=== PATIENT | female | born 1990 | race African-American/Black ===

== ENCOUNTER 2018-12-04 21:37 | Emergency (ER) | payer OTHER ==
--- NOTE | 2018-12-04 21:46 | ED ---
Chest Pain HPI - General Chief Complaint: Chest Pain Stated Complaint: Chest and neck pain, WILLIAM Time Seen by Provider: 12/04/18 21:45 Source: patient Mode of arrival: wheelchair Limitations: no limitations - History of Present Illness Initial Comments: Patient is a previously healthy 28-year-old female who presents to the emergency department today for reevaluation of right-sided chest pain and right shoulder pain. Patient reports a couple days ago she began having pain in her right shoulder, she was seen and evaluated outside hospital last night and discharged this morning after a negative workup she was advised that her pain is muscular skeletal in nature. She reports she's taken 2 Motrin 600 mg at the day today but continues to have pain in her right shoulder and right chest. Pain is now associated with shortness of breath so she wanted reevaluation. Patient denies any specific injury or increased work load. She denies any workouts or heavy lifting. She reports that a few days ago her friend was giving her massage did note that her shoulder seems somewhat swollen. The shortness breath is new. Patient has no cardiac history. No family history of early cardiac disease. She has no history of DVT or PE. She isn't every day smoker. She is not on any estrogen. She has no lower surety swelling. - Related Data Home Medications Medication Instructions Recorded Confirmed Ibuprofen [Motrin Ib] 400 mg PO Q6H PRN 12/04/18 12/04/18 Previous Rx's Medication Instructions Recorded Ibuprofen [Motrin] 600 mg PO Q6HR PRN #30 tab 12/04/18 Methocarbamol [Robaxin-750] 750 mg PO TID #30 tablet 12/04/18 Allergies Allergy/AdvReac Type Severity Reaction Status Date / Time No Known Allergies Allergy Verified 12/04/18 22:15 Review of Systems ROS Statement: Those systems with pertinent positive or pertinent negative responses have been documented in the HPI. ROS Other: All systems not noted in ROS Statement are negative. EKG Findings - EKG Comments: EKG Findings:: EKG was obtained at 2152, repeat is 95 rhythm is sinus there is a normal axis, there are normal intervals GA is 146 QRS 82 QTc 439. There are no acute ST elevations or depressions there is no evidence of acute ischemia or infarction. There is no sinus tachycardia or S1 Q3 T3 pattern suggestive of right heart strain or pulmonary embolism. Past Medical History Additional Past Medical History / Comment(s): syncopal episodes History of Any Multi-Drug Resistant Organisms: None Reported Past Surgical History: No Surgical Hx Reported Past Psychological History: Anxiety, Depression Smoking Status: Current every day smoker Past Alcohol Use History: None Reported Past Drug Use History: None Reported General Exam - General Exam Comments Initial Comments: Physical Exam GENERAL: Patient is well-developed and well-nourished. Patient is nontoxic and well- hydrated and is in no distress. HENT: Normocephalic, Atraumatic. EYES: PERRL, EOMI PULMONARY: Unlabored respirations. No audible rales rhonchi or wheezing was noted. CARDIOVASCULAR: There is a regular rate and rhythm without any murmurs gallops or rubs. ABDOMEN: Soft and nontender with normal bowel sounds. SKIN: Skin is clear with no lesions or rashes and otherwise unremarkable. : Deferred NEUROLOGIC: Patient is alert and oriented x3. Moving all extremities spontaneously MUSCULOSKELETAL: Normal extremities with adequate strength and full range of motion. No lower extremity swelling or edema. No calf tenderness. PSYCHIATRIC: Normal psychiatric evaluation. Limitations: no limitations Limitations: no limitations Course Vital Signs 12/04/18 21:42 Temperature 98.4 F Pulse Rate 98 Respiratory 18 Rate Blood Pressure 128/91 O2 Sat by Pulse 99 Oximetry Chest Pain MDM - MDM Patient was seen and evaluated history is obtained from patient Patient with right-sided chest pain shortness of breath and right shoulder pain radiating to her neck Heart score 1 smoking PERC and Wells negative Patient reports negative workup at outside hospital last night I have very high suspicion for musculoskeletal etiology of discomfort Will treat with Toradol and Valium Labs and imaging ordered EKG non-ischemic CXR unremarkable Labs unremarkable Patient was reevaluated reports significant improvement in her discomfort after Toradol and Valium I will plan to discharge patient with Motrin and Robaxin patient is agreeable to this plan. All questions pertaining care were answered best my ability return parameters were discussed and the patient was discharged home in stable condition. Disposition Clinical Impression: Right shoulder pain, Musculoskeletal pain Disposition: HOME SELF-CARE Instructions (If sedation given, give patient instructions): Musculoskeletal Pain (ED) Prescriptions: Ibuprofen [Motrin] 600 mg PO Q6HR PRN #30 tab PRN Reason: Pain Methocarbamol [Robaxin-750] 750 mg PO TID #30 tablet Is patient prescribed a controlled substance at d/c from ED?: No Referrals: Pato Taylor MD [Primary Care Provider] - 1-2 days
[2018-12-04] MEDS: KETOROLAC 30 MG/ML 1 ML VIAL IVP STA (22:01)
[2018-12-04] MEDS: DIAZEPAM 5 MG TAB PO STA (22:01)
[2018-12-04] MEDS: ASPIRIN 81 MG PO STA (22:04)
[2018-12-04 22:13] LABS: Basophils # (A) 0.1 k/uL (0-0.2); Basophils % (A) 1 %; Eosinophils # (A) 0.1 k/uL (0-0.7); Eosinophils % (A) 2 %; HCT 43.5 % (34.0-46.0); HGB 13.5 gm/dL (11.4-16.0); Lymphocytes # (A) 1.9 k/uL (1.0-4.8); Lymphocytes % (A) 23 %; MCH 27.9 pg (25.0-35.0); MCV 90.2 fL (80.0-100.0); Mean Platelet Volume 8.8; Monocytes # (A) 0.4 k/uL (0-1.0); Monocytes % (A) 5 %; Neutrophils # (A) 5.5 k/uL (1.3-7.7); Neutrophils % (A) 69 %; Platelet Count 208 k/uL (150-450); RBC 4.82 m/uL (3.80-5.40); RDW 13.2 % (11.5-15.5); WBC 8.1 k/uL (3.8-10.6)
[2018-12-04 22:23] LABS: ALT 21 U/L (9-52); AST 21 U/L (14-36); Albumin 4.5 g/dL (3.5-5.0); Alkaline Phosphatase 64 U/L (38-126); Anion Gap 9 mmol/L; Blood Urea Nitrogen 7 mg/dL (7-17); Calcium 9.9 mg/dL (8.4-10.2); Carbon Dioxide 22 mmol/L (22-30); Chloride 111 mmol/L (98-107); Glucose 108 mg/dL (74-99); Potassium 4.5 mmol/L (3.5-5.1); Sodium 142 mmol/L (137-145); Total Bilirubin 0.4 mg/dL (0.2-1.3); Total Protein 7.7 g/dL (6.3-8.2)
[2018-12-04 22:25] LABS: Creatine Kinase 91 U/L (30-135)
[2018-12-04 22:32] LABS: D-Dimer 0.32 mg/L FEU (<0.60); INR 0.9 (<1.2); Partial Thromboplastin Time 27.9 sec (22.0-30.0)
[2018-12-04 22:38] LABS: Creatine Kinase MB 2.6 ng/mL (0.0-2.4); Troponin I <0.012 ng/mL (0.000-0.034)
--- NOTE | 2018-12-04 22:40 | XR ---
EXAM: XR Chest, 2 Views CLINICAL HISTORY: ITS.REASON XR Reason: Chest Pain TECHNIQUE: Frontal and lateral views of the chest. COMPARISON: No relevant prior studies available. FINDINGS: Lungs: Unremarkable. No consolidation. Pleural space: Unremarkable. No pneumothorax. Heart: Unremarkable. No cardiomegaly. Mediastinum: Unremarkable. Bones/joints: Unremarkable. IMPRESSION: Normal chest x-rays.
[2018-12-04 23:12] VITALS: BP 125/92; PULSE 89; RESP 16; TEMP 98.1
== END 2018-12-04 23:19 | disposition home or self-care (01) ==
LOC: EC 21:37
DX: M25.511 Pain in right shoulder (principal); R07.89 Other chest pain; F17.200 Nicotine dependence, unspecified, uncomplicated; Z53.8 Procedure and treatment not carried out for other reasons
CPT/HCPCS: 36415; 93005; 85379; 80053; 82550; 82553; 83735; 84484; 85025; 85610; 85730; 86140; 71046; 99285; 96374; J1885

== ENCOUNTER 2019-02-24 11:26 | Emergency (ER) | payer OTHER ==
[2019-02-24 11:40] VITALS: BP 108/68; TEMP 98.4
--- NOTE | 2019-02-24 12:00 | ED ---
General Adult HPI - General Chief complaint: Fall Stated complaint: fall, facial injury Time Seen by Provider: 02/24/19 11:43 Source: patient, RN notes reviewed, old records reviewed Mode of arrival: ambulatory Limitations: no limitations - History of Present Illness Initial comments: 28-year-old female patient with no pertinent past medical history presents to ED with superficial fall and abrasion. Patient worse that she was walking in the [place] when she slipped in some mild, patient reports that she slid down to the ground and had a superficial abrasion on the tip of her nose. Patient works that she did have a significant amount of bleeding from this abrasion and wanted to be evaluated to see if she needed stitches. Patient denies any loss of consciousness, headache, changes in vision, pain in neck, paresthesias or weakness in upper or lower extremities, chest pain abdominal pain or shortness of breath. Systemic: Pt denies fatigue, myalgia, fever/chills, rash. Pt denies weakness, night sweats, weight loss. Neuro: Pt denies headache, visual disturbances, syncope or pre-syncope. HEENT: Pt denies ocular discharge or irritation, otalgia, rhinorrhea, pharyngitis or notable lymphadenopathy. Cardiopulmonary: Pt denies chest pain, SOB, heart palpitations, dyspnea on exertion. Abdominal/GI: Pt denies abdominal pain, n/v/d. : Pt denies dysuria, burning w/ urination, frequency/urgency. Denies new onset urinary or bowel incontinence. MSK: Pt denies myalgia, loss of strength or function in extremities. Neuro: Pt denies new onset weakness, paresthesias. - Related Data Home Medications Medication Instructions Recorded Confirmed No Known Home Medications 02/24/19 02/24/19 Allergies Allergy/AdvReac Type Severity Reaction Status Date / Time No Known Allergies Allergy Verified 02/24/19 11:54 Review of Systems ROS Statement: Those systems with pertinent positive or pertinent negative responses have been documented in the HPI. ROS Other: All systems not noted in ROS Statement are negative. Past Medical History Additional Past Medical History / Comment(s): syncopal episodes History of Any Multi-Drug Resistant Organisms: None Reported Past Surgical History: No Surgical Hx Reported Past Psychological History: Anxiety, Depression Smoking Status: Current every day smoker Past Alcohol Use History: Rare Past Drug Use History: None Reported General Exam - General Exam Comments Initial Comments: Constitutional: NAD, AOX3, Pt has pleasant affect. HEENT: NC/AT, trachea midline, neck supple, no lymphadenopathy. Posterior pharynx non erythematous, without exudates. External ears appear normal, without discharge. TM pale maldonado bilaterally. Mucous membranes moist. Eyes PERRLA, EOM intact. There is no scleral icterus. No pallor noted. Cardiopulmonary: RRR, no murmurs, rubs or gallops, no JVD noted. Lungs CTAB in anterior and posterior herrera. No peripheral edema. Abdominal exam: Abdomen soft and non-distended. Abdomen non-tender to palpation in all 4 quadrants. Bowel sounds active in LLQ. No hepatosplenomegaly. No ecchymosis Neuro: CN II-XII intact. No nuchal rigidity. No cervical spinal tenderness. MSK: Less than 1 cm abrasion noted at tip of nose. Nasal bones intact. No facial deformity, crepitus, or ecchymosis. No ecchymoses. Abrasion is not open, does not require closure. No posterior calf tenderness bilaterally, homans sign negative bilaterally. Posterior tibialis and radial pulse +2 bilaterally. Sensation intact in upper and lower extremities. Full active ROM in upper and lower extremities, 5/5 stregnth. Limitations: no limitations Course Vital Signs 02/24/19 11:38 Temperature 98.4 F Pulse Rate 103 H Respiratory 18 Rate Blood Pressure 108/68 O2 Sat by Pulse 98 Oximetry Medical Decision Making - Medical Decision Making 28-year-old female patient with no pertinent past medical history presents to ED with superficial fall and abrasion. Patient worse that she was walking in the [place] when she slipped in some mild, patient reports that she slid down to the ground and had a superficial abrasion on the tip of her nose. Patient works that she did have a significant amount of bleeding from this abrasion and wanted to be evaluated to see if she needed stitches. Patient denies any loss of consciousness, headache, changes in vision, pain in neck, paresthesias or weakness in upper or lower extremities, chest pain abdominal pain or shortness of breath. Pt VSS, afebrile. Physical exam displayed: CN II-XII intact. No nuchal rigidity. No cervical spinal tenderness. Less than 1 cm abrasion noted at tip of nose. Nasal bones intact. No facial deformity, crepitus, or ecchymosis. No ecchymoses. Wound cleaned, patient will be discharged, patient follow up with primary care provider in 1-2 days. Patient monitor for signs symptoms of infection. Patient return to ER if condition worsens in any way. Pt reports tetanus updated within lsat 5 years. Case discussed with Dr. Reina. Disposition Clinical Impression: Fall, Abrasion Disposition: HOME SELF-CARE Condition: Stable Instructions (If sedation given, give patient instructions): Abrasion (ED) Additional Instructions: Patient to adhere to previously discussed treatment plan and will take medication(s) as directed. Patient to follow up with PCP in 1-2 days. Patient to return to ED if symptoms do not improve. Please monitor for signs and symptoms of infection including: redness, warmth, drainage, discharge. Please return to ED if these signs or symptoms occur, new signs or symptoms develop or if condition worsens in anyway. Is patient prescribed a controlled substance at d/c from ED?: No Referrals: Pato Taylor MD [Primary Care Provider] - 1-2 days
[2019-02-24 12:23] VITALS: PULSE 91; RESP 16
== END 2019-02-24 12:23 | disposition home or self-care (01) ==
LOC: EC 11:26
DX: S00.31XA Abrasion of nose, initial encounter (principal); F17.200 Nicotine dependence, unspecified, uncomplicated; W01.0XXA Fall on same level from slipping, tripping and stumbling without subsequent striking against object, initial encounter; Y92.89 Other specified places as the place of occurrence of the external cause; Y93.01 Activity, walking, marching and hiking
CPT/HCPCS: 99283

== ENCOUNTER → 2019-07-17 | Outpatient (CLI) | payer OTHER ==
--- NOTE | 2019-07-19 19:25 | MR ---
MRI right hip HISTORY: Right hip pain Multiplanar multisequence imaging obtained through the pelvis with small bcdei-hr-wcre images through the right hip There is no comparison Bone marrow signal is maintained. Articular cartilage signal is normal. There is no evident labral te ar. No fracture or dislocation. No joint effusion. Some mild increased signal on T2-weighted sequence s at the insertion of the gluteus medius tendon on the greater trochanter, small [id number] ontiveros l image #13 may represent a strain. Question transitional vertebral body at the lumbosacral junction. There are nabothian cysts at the le josé miguel of the cervix. Intrauterine contraceptive device is in place. IMPRESSION: Difficult to exclude a strain of the gluteus medius tendon at its insertion on the greate r trochanter.
== END | disposition home or self-care (01) ==
LOC: RADMRIMAIN 13:39
PROVIDERS: ATTEND Family Medicine
DX: M25.551 Pain in right hip (principal)

== ENCOUNTER 2019-09-21 20:59 | Emergency (ER) | payer OTHER ==
[2019-09-21 21:05] VITALS: BP 141/87; PULSE 128; RESP 24; TEMP 98.4
[2019-09-21] MEDS ORDERED: CYCLOBENZAPRINE 5 MG TAB PO STA (21:45)
[2019-09-21] MEDS ORDERED: predniSONE 50 MG TAB PO STA (21:45)
[2019-09-21] MEDS ORDERED: CYCLOBENZAPRINE 10MG STARTER 3 TAB BTL PO STA (21:45)
--- NOTE | 2019-09-21 22:13 | XR ---
EXAMINATION TYPE: XR lumbar spine 2 or 3V DATE OF EXAM: 09/21/2019 COMPARISON: NONE HISTORY: Back pain TECHNIQUE: 3 views FINDINGS: Lumbar vertebra have normal alignment. Posterior elements are intact. Disc spaces are fairl y normal. Sacroiliac joints are normal. There is slight narrowing of L5-S1 disc space. IMPRESSION: Narrowing at L5-S1. There is a mild lumbosacral kyphotic curvature of uncertain significa nce.
--- NOTE | 2019-09-21 23:00 | ED ---
General Adult HPI - General Chief complaint: Back Pain/Injury Stated complaint: Back Pain Source: patient, RN notes reviewed, old records reviewed Mode of arrival: ambulatory Limitations: no limitations - History of Present Illness Initial comments: 29-year-old the male patient past medical history of right paralumbar back pain which has been ongoing for approximately 6 months. She chief complaint of back pain. Patient brought that she's been seen by her primary care provider for this and she completed physical therapy which I have significant reduction or symptoms. Patient reports that she is waxing and waning right paralumbar back pain some mild paresthesias extending down her posterior right leg. Denies any red flag symptoms. Denies any saddle anesthesia, lower extremity weakness, loss of bowel or bladder control. Denies any recent falls or trauma. Denies any chance of being . Systemic: Pt denies fatigue, fever/chills, rash. Pt denies weakness, night sweats, weight loss. Neuro: Pt denies headache, visual disturbances, syncope or pre-syncope. HEENT: Pt denies ocular discharge or irritation, otalgia, rhinorrhea, pharyngitis or notable lymphadenopathy. Cardiopulmonary: Pt denies chest pain, SOB, heart palpitations, dyspnea on exertion. Abdominal/GI: Pt denies abdominal pain, n/v/d. : Pt denies dysuria, burning w/ urination, frequency/urgency. Denies new onset urinary or bowel incontinence. MSK: Pt denies loss of strength or function in extremities. Neuro: Pt denies new onset weakness. - Related Data Previous Rx's Medication Instructions Recorded predniSONE 50 mg PO DAILY #4 tab 09/21/19 Allergies Allergy/AdvReac Type Severity Reaction Status Date / Time No Known Allergies Allergy Verified 09/21/19 21:05 Review of Systems ROS Statement: Those systems with pertinent positive or pertinent negative responses have been documented in the HPI. ROS Other: All systems not noted in ROS Statement are negative. Past Medical History Additional Past Medical History / Comment(s): syncopal episodes History of Any Multi-Drug Resistant Organisms: None Reported Past Surgical History: No Surgical Hx Reported Past Psychological History: Anxiety, Depression Smoking Status: Current every day smoker Past Alcohol Use History: Rare Past Drug Use History: None Reported General Exam - General Exam Comments Initial Comments: Constitutional: NAD, AOX3, Pt has pleasant affect. HEENT: NC/AT, trachea midline, neck supple, no lymphadenopathy. Posterior pharynx non erythematous, without exudates. External ears appear normal, without discharge. Mucous membranes moist. Eyes PERRLA, EOM intact. There is no scleral icterus. No pallor noted. Cardiopulmonary: RRR, no murmurs, rubs or gallops, no JVD noted. Lungs CTAB in anterior and posterior herrera. No peripheral edema. Abdominal exam: Abdomen soft and non-distended. Abdomen non-tender to palpation in all 4 quadrants. Bowel sounds active in LLQ. No hepatosplenomegaly. No ecchymosis Neuro: CN II-XII grossly intact. No nuchal rigidity. No raccon eyes, no samuel sign, no hemotympanum. No cervical spinal tenderness. MSK: Right paralumbar region mild tenderness to palpation. No midline tenderness. No other areas of tenderness. Heel toe walking intact. Right straight leg raise positive left straight leg raise negative. Distal pulses intact and equal. No posterior calf tenderness bilaterally, homans sign negative bilaterally. Posterior tibialis and radial pulse +2 bilaterally. Sensation intact in upper and lower extremities. Full active ROM in upper and lower extremities, 5/5 stregnth. Limitations: no limitations Course Vital Signs 09/21/19 21:03 Temperature 98.4 F Pulse Rate 128 H Respiratory 24 Rate Blood Pressure 141/87 O2 Sat by Pulse 99 Oximetry Medical Decision Making - Medical Decision Making 29-year-old female patient presents ED chief complaint right paralumbar back pain. Has not ongoing for approximately 6 months waxing and waning. Patient vital signs this displayed mild tachycardia likely secondary to pain. Stable at discharge as charted in paper charts due to down time. Physical exam sclerae paralumbar back pain with radiculopathy. Plain films displayed slight narrowing of L5-S1 mild lumbosacral kyphotic curvature. These findings were discussed with patient. Pt administered steroids in ED. Patient will be discharged with outpatient primary care provider and orthopedic follow-up. Patient was reportedly unable to follow [facility] with [facility] due to insurance issues, advised to follow up with [facility]. Return to ER physician worsens. Case discussed with Dr. Barr. Disposition Clinical Impression: Lumbar back pain Disposition: HOME SELF-CARE Condition: Stable Instructions (If sedation given, give patient instructions): Acute Low Back Pain (ED) Additional Instructions: Patient to adhere to previously discussed treatment plan and will take medication(s) as directed. Patient to follow up with PCP in 1-2 days. Patient to return to ED if symptoms do not improve. Take Medication as directed. Follow up with primary care provider tomorrow. Return to ER if condition worsens. Prescriptions: predniSONE 50 mg PO DAILY #4 tab Is patient prescribed a controlled substance at d/c from ED?: No Referrals: Pato Taylor MD [Primary Care Provider] - 1-2 days Mahesh Piña DO [Doctor of Osteopathic Medicine] - 1-2 days
== END 2019-09-21 23:05 | disposition home or self-care (01) ==
LOC: EC 20:59
DX: M54.16 Radiculopathy, lumbar region (principal); R00.0 Tachycardia, unspecified; M48.07 Spinal stenosis, lumbosacral region; F17.200 Nicotine dependence, unspecified, uncomplicated
CPT/HCPCS: 72100; 99284; J7512

== ENCOUNTER → 2019-10-29 | Outpatient (CLI) | payer OTHER ==
--- NOTE | 2019-10-29 15:21 | MR ---
EXAMINATION TYPE: MR lumbar spine wo/w con DATE OF EXAM: 10/29/2019 COMPARISON: NONE HISTORY: 29-year-old female Radiculopathy of Rt Leg / positive EMG Technique: Multiplanar, multisequence images of the lumbar spine were obtained before and after admin istration of 7.5 mL intravenous Gadavist gadolinium contrast. FINDINGS: Vertebral body heights are preserved. Alignment is maintained. There is chronic appearing endplate deformities at L5-S1 with endplate indentations and chronic bony remodeling between the endplates matching the indentations. Associated moderate disc desiccation. There is posterior disc bulge at this level probably impinging the traversing right S1 nerve root and abutting the traversing left S1 nerve root. Mild overall spinal canal stenosis. Mild bilateral neura l foraminal stenosis. Tiny right paracentral posterior annular fissure at L3-L4. Mild bulging disks from L2-L5 levels. There is mild facet degenerative change mid to lower lumbar spine. Changes result in mild neural foraminal narrowing on both sides at L3-L4, L4-L5, and L5-S1. Conus medullaris is normal. Prominent red marrow compatible with patient's relatively young age. IMPRESSION: 1. Old endplate deformities at L5-S1 with associated mild degenerative disc disease. The S1 endplate deformity appears to cause chronic remodeling to the inferior L5 endplate. 2. There is posterior bulging disc here at L5-S1 causing a mild spinal canal stenosis. Disc material may impinge the traversing right S1 nerve root and abut the traversing left S1 nerve root. 3. Minimal bulging discs from L2 through L5 levels with a tiny right paracentral annular fissure at L 3-L4. 4. Mild facet arthropathy mid to lower lumbar spine. 5. Variable mild neuroforaminal stenoses on both sides from L3 through S1 levels.
== END | disposition home or self-care (01) ==
LOC: RADMRIMAIN 13:48
PROVIDERS: ATTEND Family Medicine
DX: M48.07 Spinal stenosis, lumbosacral region (principal); M51.37 Other intervertebral disc degeneration, lumbosacral region; M12.88 Other specific arthropathies, not elsewhere classified, other specified site
CPT/HCPCS: 72158

== ENCOUNTER → 2019-12-10 | Outpatient (CLI) | payer OTHER ==
--- NOTE | 2019-12-10 10:11 | CT ---
EXAMINATION TYPE: CT abdomen pelvis w con DATE OF EXAM: 12/10/2019 COMPARISON: 09/04/2013 HISTORY: LUQ pain CT DLP: 584.3 mGycm CONTRAST: CT scan of the abdomen and pelvis is performed with Oral Contrast and with IV Contrast, patient injec abi with 100 mL of Isovue 300. FINDINGS: LUNG BASES-: No visible nodule. No infiltrate. LIVER/GB: No calcified gallstones. No space occupying hepatic lesion. Biliary tree is of normal ca liber. PANCREAS: No inflammation. No distinct mass. SPLEEN: No splenic enlargement. No lesion seen. ADRENALS: No nodule. No thickening. KIDNEYS/BLADDER: No hydronephrosis. No nephrolithiasis. No distinct renal mass. Urinary bladder g rossly unremarkable. BOWEL: Normal appendix. Normal bowel caliber. No inflammation. GENITAL ORGANS: IUD is in place. A 2.3 cm left ovarian cyst noted. No right ovarian lesion or uterin e mass. LYMPH NODES: No greater than 1cm abdominal or pelvic lymph nodes are appreciated. AORTA: No significant abnormality. OSSEOUS STRUCTURES: No significant abnormality is seen. OTHER: No significant additional abnormality is seen. IMPRESSION: 1. Small follicular cyst left ovary. Trace free fluid within the cul-de-sac. Otherwise unremarkable s tudy.
== END | disposition home or self-care (01) ==
LOC: RADCTMAIN 07:45
PROVIDERS: ATTEND Family Medicine
DX: N83.02 Follicular cyst of left ovary (principal)
CPT/HCPCS: 74177; Q9967

== ENCOUNTER 2022-08-10 20:02 | Emergency (ER) | payer OTHER, BC ==
[2022-08-10 21:22] VITALS: RESP 20; TEMP 98
[2022-08-10] MEDS ORDERED: predniSONE 50 MG TAB PO STA (21:34)
[2022-08-10] MEDS ORDERED: IBUPROFEN 600 MG TAB PO STA (21:34)
--- NOTE | 2022-08-10 21:52 | XR ---
EXAMINATION TYPE: XR lumbar spine 2 or 3V DATE OF EXAM: 08/10/2022 COMPARISON: NONE HISTORY: Back pain TECHNIQUE: 3 views FINDINGS: There is narrowing of L5-S1 disc space. Lumbar vertebra have fairly normal alignment. No co mpression fracture. There is IUD noted in the uterus. Sacroiliac joints are intact. There appears to be developmentally small spinal canal at the L4 and L5 with short pedicles. IMPRESSION: No fracture seen. Small spinal canal. Developmental spinal stenosis. Spondylosis at L5-S1. Spine not changed compared to CT scan of 12/10/2019.
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
[2022-08-10 23:13] VITALS: BP 130/68; PULSE 92
== END 2022-08-10 23:09 | disposition home or self-care (01) ==
LOC: EC 20:02
DX: M54.50 Low back pain, unspecified (principal); F41.9 Anxiety disorder, unspecified; F32.A Depression, unspecified; V43.62XA Car passenger injured in collision with other type car in traffic accident, initial encounter
CPT/HCPCS: 99283 ×2; 72100; J7512; 99284

== ENCOUNTER → 2023-06-18 | Outpatient (CLI) | payer BC, OTHER ==
--- NOTE | 2023-06-19 11:19 | CT ---
EXAMINATION TYPE: CT lumbar spine wo con CT DLP: 851.40 mGycm, Automated exposure control for dose reduction was used. DATE OF EXAM: 06/18/2023 7:12 PM COMPARISON: Lumbar spine radiograph 06/17/2023, 08/10/2022, MRI lumbar spine 03/11/2022, CT abdomen pel vis 12/10/2019. CLINICAL INDICATION:Female, 33 years old with history of M54.50 LOW BACK PAIN; PHH, low back pain x 5 years TECHNIQUE: Multiple axial images were obtained from the midportion of T11 through the sacroiliac alanna nts. Soft tissue and bone windows in coronal and sagittal planes were obtained and reviewed FINDINGS: Alignment: There are 5 lumbar type vertebral bodies within normal alignment. Bone: No evidence of fracture is identified. Chronic endplate changes with disc space narrowing at L 5-S1 with bony remodeling. Discs: T12-L1: No spinal canal or neural foraminal stenosis is identified. L1-L2: No spinal canal or neural foraminal stenosis is identified. L2-L3: No spinal canal or neural foraminal stenosis is identified. L3-L4: No spinal canal or neural foraminal stenosis is identified. L4-L5: Broad-based disc bulge with minimal effacement of the anterior thecal sac. Mild bilateral nasir ral foraminal narrowing. L5-S1: Similar broad-based disc bulge with moderate effacement of the anterior thecal sac with likely abutment of the transversing bilateral S1 nerve roots. Moderate bilateral neural foraminal stenosis at this level. Other: IUD is present within the uterus. Moderately distended urinary bladder. IMPRESSION: 1. No evidence of fracture of the lumbar spine. 2. Chronic endplate deformities of L5-S1 with associated moderate degenerative disc disease resulting in a broad-based disc bulge with moderate central canal stenosis and bilateral moderate neural kenan inal stenosis. There is likely abutment of the traversing bilateral S1 nerve roots. 3. Mild degenerative disc disease at L4-L5.
== END | disposition home or self-care (01) ==
LOC: RADCTMAIN 18:49
PROVIDERS: ATTEND Orthopaedic Surgery
DX: M51.37 Other intervertebral disc degeneration, lumbosacral region (principal); M99.73 Connective tissue and disc stenosis of intervertebral foramina of lumbar region; M48.07 Spinal stenosis, lumbosacral region; M54.30 Sciatica, unspecified side
CPT/HCPCS: 72131

== ENCOUNTER 2023-11-04 08:57 | Observation (INO) | payer BC, OTHER ==
--- NOTE | 2023-11-04 09:55 | ED ---
Back Pain HPI - General Chief Complaint: Back Pain/Injury Stated Complaint: back pain Time Seen by Provider: 11/04/23 08:59 Source: patient, RN notes reviewed Limitations: no limitations - History of Present Illness Initial Comments: 33-year-old female comes emergency Department chief complaint low back pain. This has been getting worse over the last several months. She states that she is unbearable with pain. She is scheduled to have surgery by Dr. Montes. She states that she just had her surgery moved up until tomorrow. She states she has symptoms areas on her right leg she denies any bowel, bladder incontinence or retention of saddle anesthesias. She states she is on Neurontin and ibuprofen. She is on no other pain meds. She states she had recent dental extraction and was placed on [place] at that time and this did not help her pain either. - Related Data Previous Rx's Medication Instructions Recorded predniSONE 50 mg PO DAILY #4 tab 09/21/19 Cyclobenzaprine [Flexeril] 10 mg PO TID PRN #15 tab 08/10/22 Ibuprofen [Motrin] 600 mg PO Q8HR PRN #20 tab 08/10/22 predniSONE 50 mg PO DAILY #5 tab 08/10/22 Allergies Allergy/AdvReac Type Severity Reaction Status Date / Time No Known Allergies Allergy Verified 11/04/23 09:03 Review of Systems ROS Statement: Those systems with pertinent positive or pertinent negative responses have been documented in the HPI. ROS Other: All systems not noted in ROS Statement are negative. Past Medical History Additional Past Medical History / Comment(s): syncopal episodes, spinal stenosis History of Any Multi-Drug Resistant Organisms: None Reported Past Surgical History: No Surgical Hx Reported Additional Past Surgical History / Comment(s): eye surgery Past Psychological History: Anxiety, Depression Smoking Status: Never smoker Past Alcohol Use History: Rare Past Drug Use History: None Reported General Exam Limitations: no limitations General appearance: alert, in no apparent distress Head exam: Present: atraumatic, normocephalic, normal inspection Respiratory exam: Present: normal lung sounds bilaterally. Absent: respiratory distress, wheezes, rales, rhonchi, stridor Cardiovascular Exam: Present: regular rate, normal rhythm, normal heart sounds. Absent: systolic murmur, diastolic murmur, rubs, gallop, clicks GI/Abdominal exam: Present: soft, normal bowel sounds. Absent: distended, tenderness, guarding, rebound, rigid Extremities exam: Present: full ROM Back exam: Present: tenderness, paraspinal tenderness. Absent: full ROM Neurological exam: Present: reflexes normal. Absent: motor sensory deficit Course Vital Signs 11/04/23 09:00 Temperature 97.9 F Pulse Rate 136 H Respiratory 16 Rate Blood Pressure 131/89 O2 Sat by Pulse 99 Oximetry Medical Decision Making - Medical Decision Making Was pt. sent in by a medical professional or institution (, PA, TRANSMISSION INSPECTOR, urgent care, hospital, or long term...) When possible be specific @ -Dr. Montes Did you speak to anyone other than the patient for history (EMS, parent, family, police, friend...)? What history was obtained from this source @ -No Did you review nursing and triage notes (agree or disagree)? Why? @ -I reviewed and agree with nursing and triage notes Were old charts reviewed (outside hosp., previous admission, EMS record, old EKG, old radiological studies, urgent care reports/EKG's, long term records)? Report findings @ -No old charts were reviewed Differential Diagnosis (chest pain, altered mental status, abdominal pain women, abdominal pain men, vaginal bleeding, weakness, fever, dyspnea, syncope, headache, dizziness, GI bleed, back pain, seizure, CVA, palpatations, mental health, musculoskeletal)? @ -Differential Back Pain: Strain, zoster, cauda equina syndrome, epidural abscess, vertebral osteom yelitis, discitis, fracture, subluxation, disc herniation, DJD, spinal stenosis, dissection, AAA, pancreatitis, peptic ulcer disease, pyelonephritis, kidney stone, this is not meant to be an all-inclusive list. EKG interpreted by me (3pts min.). @ -As above X-rays interpreted by me (1pt min.). @ -None done CT interpreted by me (1pt min.). @ -None done U/S interpreted by me (1pt. min.). @ -None done What testing was considered but not performed or refused? (CT, X-rays, U/S, labs)? Why? @ -None What meds were considered but not given or refused? Why? @ -None Did you discuss the management of the patient with other professionals (professionals i.e. , PA, TRANSMISSION INSPECTOR, lab, RT, psych nurse, manager social responsibility, solar photovoltaic installer, teacher, co founder and chief strategy officer, case reviewer)? Give summary @ -Jayme Branch on-call for orthopedics recommends pain control, observation stay for surgery in the morning Was smoking cessation discussed for >3mins.? @ -No Was critical care preformed (if so, how long)? @ -No Were there social determinants of health that impacted care today? How? (Homelessness, low income, unemployed, alcoholism, drug addiction, transportation, low edu. Level, literacy, decrease access to med. care, detention, rehab)? @ -No Was there de-escalation of care discussed even if they declined (Discuss DNR or withdrawal of care, Hospice)? DNR status @ -No What co-morbidities impacted this encounter? (DM, HTN, Smoking, COPD, CAD, Cancer, CVA, ARF, Chemo, Hep., AIDS, mental health diagnosis, sleep apnea, morbid obesity)? @ -None Was patient admitted / discharged? Hospital course, mention meds given and route, prescriptions, significant lab abnormalities, going to OR and other pertinent info. @ -Patient is admitted to observation for analgesic control and surgery in the morning. Undiagnosed new problem with uncertain prognosis? @ -No Drug Therapy requiring intensive monitoring for toxicity (Heparin, Nitro, Insulin, Cardizem)? @ -No Were any procedures done? @ -No Diagnosis/symptom? @ -Back pain Acute, or Chronic, or Acute on Chronic? @ -Acute on chronic Uncomplicated (without systemic symptoms) or Complicated (systemic symptoms)? @ -Uncomplicated Side effects of treatment? @ -No Exacerbation, Progression, or Severe Exacerbation? @ -No Poses a threat to life or bodily function? How? (Chest pain, [place], NE, pneumonia, PE, COPD, DKA, ARF, appy, cholecystitis, CVA, Diverticulitis, Homicidal, Suicidal, threat to staff... and all critical care pts) @ -No - Lab Data Result diagrams: 11/04/23 09:35 11/04/23 09:35 Lab Results 11/04/23 11/04/23 11/04/23 Range/Units 09:35 09:35 09:35 WBC 9.4 (3.8-10.6) k/uL RBC 4.30 (3.80-5.40) m/uL Hgb 12.6 (11.4-16.0) gm/dL Hct 38.7 (34.0-46.0) % MCV 89.9 (80.0-100.0) fL MCH 29.2 (25.0-35.0) pg MCHC 32.5 (31.0-37.0) g/dL RDW 13.1 (11.5-15.5) % Plt Count 203 (150-450) k/uL MPV 9.6 Neutrophils % 69 % Lymphocytes % 21 % Monocytes % 6 % Eosinophils % 3 % Basophils % 1 % Neutrophils # 6.5 (1.3-7.7) k/uL Lymphocytes # 2.0 (1.0-4.8) k/uL Monocytes # 0.5 (0-1.0) k/uL Eosinophils # 0.3 (0-0.7) k/uL Basophils # 0.0 (0-0.2) k/uL PT 10.6 (10.0-12.5) sec INR 1.0 (<1.2) APTT 28.2 (22.0-30.0) sec Sodium (137-145) mmol/L Potassium (3.5-5.1) mmol/L Chloride (98-107) mmol/L Carbon Dioxide (22-30) mmol/L Anion Gap mmol/L BUN (7-17) mg/dL Creatinine (0.52-1.04) mg/dL Est GFR (CKD-EPI)AfAm (>60 ml/min/1.73 sqM) Est GFR (CKD-EPI)NonAf (>60 ml/min/1.73 sqM) Glucose (74-99) mg/dL Calcium (8.4-10.2) mg/dL Total Bilirubin (0.2-1.3) mg/dL AST (14-36) U/L ALT (4-34) U/L Alkaline Phosphatase (38-126) U/L Total Protein (6.3-8.2) g/dL Albumin (3.5-5.0) g/dL Urine Color Light Yellow Urine Appearance Clear (Clear) Urine pH 5.5 (5.0-8.0) Ur Specific [place] 1.022 (1.001-1.035) Urine Protein Negative (Negative) Urine Glucose (UA) Negative (Negative) Urine Ketones Negative (Negative) Urine Blood Negative (Negative) Urine Nitrite Negative (Negative) Urine Bilirubin Negative (Negative) Urine Urobilinogen <2.0 (<2.0) mg/dL Ur Leukocyte Esterase Negative (Negative) 11/04/23 Range/Units 09:35 WBC (3.8-10.6) k/uL RBC (3.80-5.40) m/uL Hgb (11.4-16.0) gm/dL Hct (34.0-46.0) % MCV (80.0-100.0) fL MCH (25.0-35.0) pg MCHC (31.0-37.0) g/dL RDW (11.5-15.5) % Plt Count (150-450) k/uL MPV Neutrophils % % Lymphocytes % % Monocytes % % Eosinophils % % Basophils % % Neutrophils # (1.3-7.7) k/uL Lymphocytes # (1.0-4.8) k/uL Monocytes # (0-1.0) k/uL Eosinophils # (0-0.7) k/uL Basophils # (0-0.2) k/uL PT (10.0-12.5) sec INR (<1.2) APTT (22.0-30.0) sec Sodium 140 (137-145) mmol/L Potassium 4.1 (3.5-5.1) mmol/L Chloride 111 H (98-107) mmol/L Carbon Dioxide 21 L (22-30) mmol/L Anion Gap 8 mmol/L BUN 15 (7-17) mg/dL Creatinine 0.65 (0.52-1.04) mg/dL Est GFR (CKD-EPI)AfAm >90 (>60 ml/min/1.73 sqM) Est GFR (CKD-EPI)NonAf >90 (>60 ml/min/1.73 sqM) Glucose 99 (74-99) mg/dL Calcium 9.1 (8.4-10.2) mg/dL Total Bilirubin 0.5 (0.2-1.3) mg/dL AST 19 (14-36) U/L ALT 16 (4-34) U/L Alkaline Phosphatase 66 (38-126) U/L Total Protein 6.8 (6.3-8.2) g/dL Albumin 3.9 (3.5-5.0) g/dL Urine Color Urine Appearance (Clear) Urine pH (5.0-8.0) Ur Specific [place] (1.001-1.035) Urine Protein (Negative) Urine Glucose (UA) (Negative) Urine Ketones (Negative) Urine Blood (Negative) Urine Nitrite (Negative) Urine Bilirubin (Negative) Urine Urobilinogen (<2.0) mg/dL Ur Leukocyte Esterase (Negative) - EKG Data -: EKG Interpreted by Me EKG Comments: EKG performed at 9:50 sinus rhythm rate of 80 [place] 118 QRS 85 QT/QTC 363/399 Disposition Clinical Impression: Lumbar radiculopathy, Lumbar back pain Disposition: ADMITTED IP TO THIS HOSP Referrals: Pato Taylor MD [Primary Care Provider] - 1-2 days Time of Disposition: 10:19
[2023-11-04] MEDS: HYDROmorphone 1 MG/ML 1 ML SYRINGE IVP STA (10:07)
[2023-11-04] MEDS: ONDANSETRON 4 MG/2 ML VIAL IVP STA (10:07)
[2023-11-04 10:15] LABS: Basophils % (A) 1 %; Eosinophils # (A) 0.3 k/uL (0-0.7); Eosinophils % (A) 3 %; HCT 38.7 % (34.0-46.0); HGB 12.6 gm/dL (11.4-16.0); Lymphocytes % (A) 21 %; MCH 29.2 pg (25.0-35.0); MCHC 32.5 g/dL (31.0-37.0); MCV 89.9 fL (80.0-100.0); Mean Platelet Volume 9.6; Monocytes # (A) 0.5 k/uL (0-1.0); Monocytes % (A) 6 %; Neutrophils # (A) 6.5 k/uL (1.3-7.7); Neutrophils % (A) 69 %; Platelet Count 203 k/uL (150-450); RDW 13.1 % (11.5-15.5); WBC 9.4 k/uL (3.8-10.6)
[2023-11-04 10:18] LABS: Appearance,Urine Clear (Clear); Bilirubin,Urine Negative (Negative); Blood,Urine Negative (Negative); Color,Urine Light Yellow; Glucose,Urine (UA) Negative (Negative); Ketones,Urine Negative (Negative); Leukocyte Esterase,Urine Negative (Negative); Nitrite,Urine Negative (Negative); PH, Urine 5.5 (5.0-8.0); Protein,Urine Negative (Negative); Specific Gravity,Urine 1.022 (1.001-1.035); Urobilinogen,Urine <2.0 mg/dL (<2.0)
[2023-11-04] MEDS ORDERED: HYDROmorphone 0.5 MG/0.5 ML SYRINGE IVP PRN (10:19)
[2023-11-04] MEDS ORDERED: NALOXONE 0.4 MG/ML 1 ML VIAL IV PRN (10:19)
[2023-11-04] MEDS ORDERED: ACETAMINOPHEN TAB 325 MG TAB PO PRN (10:19)
[2023-11-04 10:25] LABS: Partial Thromboplastin Time 28.2 sec (22.0-30.0); Prothrombin Time 10.6 sec (10.0-12.5)
[2023-11-04 10:32] LABS: ALT 16 U/L (4-34); AST 19 U/L (14-36); African American GFR (CKD) >90 (>60 ml/min/1.73 sqM); Albumin 3.9 g/dL (3.5-5.0); Alkaline Phosphatase 66 U/L (38-126); Anion Gap 8 mmol/L; Blood Urea Nitrogen 15 mg/dL (7-17); Calcium 9.1 mg/dL (8.4-10.2); Carbon Dioxide 21 mmol/L (22-30); Chloride 111 mmol/L (98-107); Glucose 99 mg/dL (74-99); Non-African American GFR(CKD) >90 (>60 ml/min/1.73 sqM); Potassium 4.1 mmol/L (3.5-5.1); Sodium 140 mmol/L (137-145); Total Bilirubin 0.5 mg/dL (0.2-1.3); Total Protein 6.8 g/dL (6.3-8.2)
[2023-11-04] MEDS: HYDROmorphone 1 MG/ML 1 ML SYRINGE IVP PRN (14:51)
--- NOTE | 2023-11-04 16:07 | P.HPOR ---
History of Present Illness H&P Date: 11/04/23 Chief Complaint: Severe low back pain, right lower extremity radiculopathy Patient is a 33-year-old female who has been following with Dr. Montes in the outpatient setting for a herniated disc at the L5-S1 region with significant pain and radiculopathy. Patient was scheduled for surgery for 11/05/2023, she did report to [facility] today for worsening pain and difficulty with ambulation. Patient was evaluated by the emergency room staff, I was contacted by them regarding the patient. Was determined the patient will be kept in hospital overnight for her surgical procedure for 11/05/2023. She was evaluated today in the observation unit, she is resting comfortably. She does have significant discomfort in the low back in significant pain rating down the entire right lower extremity. She denies any left lower extremity pain or numbness or tingling. She denies any upper extremity symptoms at this time. She denies any loss of bowel or bladder function. She denies any numbness or tingling to the general or perineal region. Review of Systems Constitutional: Reports as per HPI Past Medical History Past Medical History: Asthma, Pneumonia Additional Past Medical History / Comment(s): syncopal episodes, spinal stenosis History of Any Multi-Drug Resistant Organisms: None Reported Past Surgical History: No Surgical Hx Reported Additional Past Surgical History / Comment(s): bilateral laser eye surgery to reduce pressure in eyes (pre glaucoma)- Dr Dela Cruz September 2023 Past Psychological History: Anxiety, Depression Smoking Status: Former smoker Past Alcohol Use History: Rare Past Drug Use History: None Reported Additional Drug Use History / Comment(s): THC gummies at night started 11/03/22. - Past Family History Mother History Unknown: Yes Additional Family Medical History / Comment(s): adopted Father History Unknown: Yes Additional Family Medical History / Comment(s): adopted Medications and Allergies Home Medications Medication Instructions Recorded Confirmed Type FLUoxetine HCL [PROzac] 20 mg PO DAILY 11/04/23 11/04/23 History Gabapentin [Neurontin] 300 mg PO BID PRN 11/04/23 11/04/23 History HYDROcodone/APAP 5-325MG [Keller 1 tab PO DAILY 11/04/23 11/04/23 History 5-325] Ibuprofen [Motrin] 800 mg PO QID 11/04/23 11/04/23 History Penicillin V Potassium [Pen Vee K] 500 mg PO BID 11/04/23 11/04/23 History busPIRone HCL [Buspirone HCl] 10 mg PO DAILY 11/04/23 11/04/23 History Allergies Allergy/AdvReac Type Severity Reaction Status Date / Time No Known Allergies Allergy Verified 11/04/23 11:48 Physical Examination Gen: AOx3, NAD VSS stable at this time Integument: No obvious open lesions or other skin changes noted to the lower lumbar spine Palpation: Mild soreness with palpation of the lower lumbar spine and paraspinal region ROM: Full range of motion all major muscle groups of bilateral upper and lower extremities with no focal deficits Sensory Exam: Senory exam to light touch is intact C5-T1 Sen[place]ry exam to light touch is intact L2-S1 Motor: 5/5 strength appreciated in the bilateral upper extremities with shoulder elevation, shoulder abduction, elbow extension, elbow flexion, wrist extension, wrist flexion, marine pipefitter 4/5 strength appreciated in the right lower extremity with plantar flexion, dorsiflexion, EHL, FHL, 4+/5 strength appreciated in the extremity with hip flexion, knee extension, knee flexion 5/5 strength appreciated in the left lower extremity with hip flexion, knee extension, knee flexion, plantar flexion, dorsiflexion, EHL, FHL Reflexes: 2/4 in all UE and LE Negative Shruti's, clonus, Babinski bilateral Special Test: Positive straight leg raise right leg Negative logroll maneuver bilaterally Results - Labs Labs: Abnormal Lab Results - Last 24 Hours (Table) 11/04/23 Range/Units 09:35 Chloride 111 H (98-107) mmol/L Carbon Dioxide 21 L (22-30) mmol/L H & H 11/04/23 Range/Units 09:35 Hgb 12.6 (11.4-16.0) gm/dL Hct 38.7 (34.0-46.0) % Coagulation 11/04/23 Range/Units 09:35 INR 1.0 (<1.2) Result Diagrams: 11/04/23 09:35 11/04/23 09:35 Assessment and Plan Assessment: HNP L5-S1 Severe low back pain Right lower extremity radiculopathy Plan: I was able to discuss the case, this including imaging studies and physical exam findings and my attending Dr. Montes. Patient will be admitted under orthopedic care with plan for surgical intervention as of 11/05/2023 Nothing by mouth after midnight Pain control, continue with current medications DVT prophylaxis, likely begin subcu medication 24 hours after surgery patient is in hospital Weight-bear as tolerated, utilize walker. Avoid excess twisting, bending or lifting Medical recommendations appreciated Further recommendations to follow Time with Patient: Less than 30
[2023-11-04] MEDS: HYDROcodone/APAP 5-325MG 1 EACH TAB PO PRN (16:25)
[2023-11-04] MEDS: GABAPENTIN 300 MG CAP PO PRN (18:22)
[2023-11-04] MEDS: ONDANSETRON 4 MG/2 ML VIAL IVP PRN (19:31)
[2023-11-05] MEDS ORDERED: GABAPENTIN 300 MG CAP PO PRN (05:00)
[2023-11-05] MEDS ORDERED: ACETAMINOPHEN TAB 500 MG TAB PO PRN (05:00)
[2023-11-05] MEDS ORDERED: TRANEXAMIC 1,000 MG/100ML-NACL 1,000 MG in SALINE 1 100ML.BAG IVPB PRN (05:00)
[2023-11-05] MEDS ORDERED: ONDANSETRON 4 MG/2 ML VIAL IVP PRN (05:00)
--- NOTE | 2023-11-05 09:53 | P.PN ---
Progress Note - Text Progress Note Date: 11/05/23 Spine Surgery Clinical and Risk Review SANTOS MOSHER is a 33 YO FEMALE presenting for evaluation of SEVERE PROGRESSIVE RLE PAIN AND WEAKNESS. She was previously seen in the office with this issue and was scheduled for surgery, but she came back to the ED due to progressive and acute changes with severe pain. It was my pleasure to have seen and examined SANTOS MOSHER. In our visit today we have had a chance to go over subjective complaints, phy sical examination findings and treatments including the natural course history without intervention and various interventional options. The patients imaging demonstrates L5-S1 dysmorphic disc space with b/l foraminal stenosis L5-S1 worse on right side. There is spondylosis with collapse of this disc space as well. NO fracture. NO lesions. On physical exam, SANTOS MOSHER demonstrates SLR RLE, Crossed SLR LLE, severe radicular pain RLE, tensioning signs. No clonus, No babinski, No Hoffmans b/l. Severe low back pain as well. I have explained to the patient that as their condition progresses it will cause further neurological deficits and eventual paralysis. Based on the patients imaging, physical exam, and the rapid progression and disabling nature of their symptoms, at this time I recommend surgery in the form or a: L5-S1 LAMINOFORAMINOTOMY. I discussed the risk and benefits of this procedure at length with SANTOS MOSHER. The patient friend agreed to considered pursuing the procedure abovementioned. Prior to surgery, she will be cleared by medicine. Questions were invited and answered, and the patient wishes to proceed as outlined below. Currently, I am recommendin. L5-S1 LAMINOFORAMINOTOMY 2. Follow up with PCP for surgical clearance 3. Review of surgical risks and benefits as well as an educational packet on the proposed surgical procedure. Risks: All surgical procedures come with inherent risks, including those related to positioning, anesthesia, intraoperative findings, and postoperative complications. It is important to understand that surgery does not come with any guarantee of a successful outcome as complications and adverse events are always possible. The patient was given a handout in office today discussing the surgical procedure and risks associated with the intervention, both of which were discussed with the patient. These risks include but are not limited to the following: Experiencing same, different or even worse symptoms in back, neck, arms, or legs compared to before surgery. Requiring further surgery or other forms of treatment presently or at some time in the future at same or other levels of the intended spine surgery. On an extreme but fortunately relatively rare basis severe complication such as blindness, stroke, heart attack, temporary and/or permanent nerve injury, paralysis, coma, or may occur, sometimes without known explanation. Surgical complications may include but are not limited to risk of infection, fluid accumulation in the surgical dissection site, including a seroma or hematoma, that requires additional surgery, wound drainage, bleeding, new numbness or weakness, vision changes/loss, spinal fluid leakage, non-healing and/or infected incision, headaches, difficulty or inability to swallow, hoarseness, hemopneumothorax, pneumothorax, impotence, retrograde ejaculation, vaginal dryness; injury to nerves, spinal cord, blood vessels, lymphatics or other vital organs (i.e., bowel injury, injury to the great vessels); heterotopic bone formation; complications related to the hardware such as scr ews, rods, cages including misplaced hardware, device failure, instrumentation at the wrong spine level, hardware fracture/breakage, or hardware loosening; vertebral failure of the spinal column above or below the newly placed hardware; retained surgical instrumentations or devices and the need for further surgery. Medical risks of the planned spine surgery include but are not limited to generalized Infections to the whole body or local areas outside of the surgical site (sepsis), heart attack, bleeding, anaphylaxis, meningitis, seizure, epilepsy, hearing loss, burn payne, laceration of the head or other areas of the body, bruising, hypersensitivity of the skin, bladder over distension; allergic reaction; shoulder injury related to positioning; fat, blood and air clots to other areas of the body like heart, lungs, brain; failure of internal organs such as lungs, kidneys, liver and excessive bleeding. If blood transfusions are necessary, note that transfusions may cause intolerance reactions such as anaphylaxis or other complex reactions. Despite best efforts, the results of spine surgery might not heal in terms of bone, soft tissues such as skin, fascia, ligaments, and joints. Additionally, in order to achieve best possible results, spine surgery may be carried out beyond the initially planned levels and involve decompression, fusion including insertion of hardware at levels other than the original intended area of surgical interest change some portions of the procedure in order to ensure the best possible outcomes. With spine surgery and spinal fusion, there are different off label uses of instrumentation (devices, implants and hardware) as well as biological substances (bone morphogenic proteins, demineralized bone matrix) as well as using extra bone from allograft sources (i.e. cadaver bone) or autograft (iliac crest bone, ribs, or the spine itself). The patient has been given information about these practices and their inherent risks and benefits. he patient has had a chance to review all the listed information, has been given print outs detailing this information, and has had all his/her questions answered to their satisfaction. It was my pleasure to have seen and examined SANTOS MOSHER. In our visit today we have had a chance to go over my understanding of our patient's current condition, the natural course history without intervention and various interventional options. Questions were invited and answered, and the patient wishes to proceed as outlined above. I have seen and examined the patient for 25 minutes and we have spent more than 50% of the time in repeat and detailed counseling about the patient's condition, its natural course history with out and as much as can be predicted with surgery and re-review of various surgical treatment options. In conclusion, SANTOS MOSHER and HER FRIEND AT BEDSIDE requested we proceed with the above suggested surgery and are willing to accept risks and limitations of the suggested surgery as nature of the disease process and our best attempts at treatment for the condition. Thank you again for allowing us to be part of your patient's care. Please don't hesitate to contact me if you have any further questions. Signed and authenticated by: Daljit Ramires [facility] [address] [facility], [address] [address]
[2023-11-05] MEDS: LACTATED RINGERS 1,000 ML IV ONE ×3 (09:55→13:32)
[2023-11-05] MEDS: ONDANSETRON 4 MG/2 ML VIAL IVP ONE ×2 (09:56→13:13)
[2023-11-05] MEDS: GABAPENTIN 300 MG CAP PO ONE (09:56)
[2023-11-05] MEDS ORDERED: NEOSTIGMINE 1 MG/ML 10 ML VIAL ONE (10:25)
[2023-11-05] MEDS ORDERED: PROPOFOL 10 MG/ML 20 ML VIAL IV ONE (10:25)
[2023-11-05] MEDS ORDERED: MIDAZOLAM 2 MG/2 ML VIAL ONE (10:25)
[2023-11-05] MEDS ORDERED: SUCCINYLCHOLINE CHLORIDE 200 MG/10 ML VIAL IV ONE (10:25)
[2023-11-05] MEDS ORDERED: LIDOCAINE 1% INJ 10MG/ML (20 ML MDV) ONE (10:25)
[2023-11-05] MEDS ORDERED: ROCURONIUM 10 MG/ML (5 ML VIAL) IV ONE (10:25)
[2023-11-05] MEDS ORDERED: fentaNYL (PF) 50 MCG/ML 2 ML AMP ONE (10:25)
[2023-11-05] MEDS ORDERED: HYDROmorphone (PF) 1 MG/ML ONE (10:25)
[2023-11-05] MEDS ORDERED: TRANEXAMIC 1,000 MG/100ML-NACL PREMIX BAG ONE (10:25)
[2023-11-05] MEDS ORDERED: PHENYLEPHRINE 10 MG/ML VIAL ONE (10:25)
[2023-11-05] MEDS ORDERED: GLYCOPYRROLATE 0.2 MG/ML 2 ML VIAL ONE (10:25)
[2023-11-05] MEDS: BUPIVACAINE (PF) 0.5% 30 ML VIAL SQ ONE (11:09)
[2023-11-05] MEDS: LIDOCAINE 2%-EPI 1:100,000 20 ML VIAL SQ ONE (11:09)
--- NOTE | 2023-11-05 11:44 | CT ---
EXAMINATION TYPE: CT lumbar spine wo con CT DLP: 772.4 mGycm, Automated exposure control for dose reduction was used. DATE OF EXAM: 11/05/2023 8:35 AM COMPARISON: Same study 06/18/2023. MR lumbar spine 10/29/2019. CLINICAL INDICATION:Female, 33 years old with history of worsening sx HNP; PHH, Worsening sx HNP TECHNIQUE: Multiple axial images were obtained from the midportion of T11 through the sacroiliac alanna nts. Soft tissue and bone windows in coronal and sagittal planes were obtained and reviewed. 3-D ref ormats of the bones were created on a separate workstation and submitted for review. Contrast used: None. Oral contrast used: None. FINDINGS: Bone: 5 lumbar-type vertebral bodies. Vertebral body heights, alignment, and disc interspacing are ma intained from T12 to L5. Redemonstration of an unusual appearance of the L5-S1 disc space, with an S- shaped configuration of the disc and accompanying deformities of the inferior endplate of L5 and supe rior endplate of S1, which appear well-corticated. The posterior inferior margin of L5 and superior p osterior margin of S1 both extend together farther posteriorly than usual, along with the disc. Overa ll appearance has not changed since at least 10/29/2019. Normal mineralization. No fracture or destruct yahir bone lesion. Discs: T12-L1: No spinal canal or neural foraminal stenosis is identified. L1-L2: No spinal canal or neural foraminal stenosis is identified. L2-L3: No spinal canal or neural foraminal stenosis is identified. L3-L4: No spinal canal or neural foraminal stenosis is identified. L4-L5: Mild broad-based posterior disc bulge and mild facet arthrosis cause mild canal and bilateral neural foraminal stenosis. L5-S1: Mild/moderate broad-based posterior disc bulging in concordance with the chronic disc and bone deformities without focal disc protrusion seen. In combination with mild facet arthrosis, there is m oderate to severe circumferential canal stenosis and moderate bilateral neural foraminal stenosis. Th bijan changes may cause impingement of descending nerve roots, particularly S1 bilaterally. Other: Visualized sacrum and SI joints are within normal limits. Partially imaged intrauterine device , which appears to be in the expected position. A few colonic diverticula without evidence of diverti culitis. Soft tissues, spinal canal and contents are not well evaluated by CT. MRI may be considered for furth er evaluation if clinically warranted. IMPRESSION: 1. No acute fracture or malalignment of the lumbar spine. 2. Abnormal appearance of L5-S1 redemonstrated, with chronic deformity of the disc and endplates, as described, resulting in moderate to severe spinal canal stenosis and moderate bilateral neural kenan inal stenoses. No significant change in the appearance since at least 10/29/2019 MR lumbar spine.
--- NOTE | 2023-11-05 12:21 | P.OP ---
Date of Procedure: 11/05/23 Preoperative Diagnosis: Current Active Problems Herniated nucleus pulposus, L5-S1, right (Acute) Lumbar radiculopathy (Acute) Lumbar back pain (Acute) Postoperative Diagnosis: Current Active Problems Herniated nucleus pulposus, L5-S1, right (Acute) Lumbar radiculopathy (Acute) Lumbar back pain (Acute) Procedure(s) Performed: 1. L5-S1 right sided MA laminoforaminotomy with microdiscecomty (35657) use of IO microscope Implants: -None Anesthesia: STEWARTA Surgeon: Daljit Montes Counter Person #1: Kory Sarmiento (WAS PRESENT AND ASSISTED WITH ALL ASPECTS OF THE CASE FROM POSITION TO CLOSURE) Estimated Blood Loss (ml): 50 IV fluids (ml): 1,200 Urine output (ml): 0 Pathology: none sent Condition: stable Disposition: PACU Indications for Procedure: Spine Surgery Clinical and Risk Review SANTOS MOSHER is a 33 YO FEMALE presenting for evaluation of SEVERE PROGRESSIVE RLE PAIN AND WEAKNESS. She was previously seen in the office with this issue and was scheduled for surgery, but she came back to the ED due to progressive and acute changes with severe pain. It was my pleasure to have seen and examined SANTOS MOSHER. In our visit today we have had a chance to go over subjective complaints, physical examination findings and treatments including the natural course history without intervention and various interventional options. The patients im aging demonstrates L5-S1 dysmorphic disc space with b/l foraminal stenosis L5-S1 worse on right side. There is spondylosis with collapse of this disc space as well. NO fracture. NO lesions. On physical exam, SANTOS MOSHER demonstrates SLR RLE, Crossed SLR LLE, severe radicular pain RLE, tensioning signs. No clonus, No babinski, No Hoffmans b/l. Severe low back pain as well. I have explained to the patient that as their condition progresses it will cause further neurological deficits and eventual paralysis. Based on the patients imaging, physical exam, and the rapid progression and disabling nature of their symptoms, at this time I recommend surgery in the form or a: L5-S1 LAMINOFORAMINOTOMY. I discussed the risk and benefits of this procedure at length with SANTOS MOSHER. The patient friend agreed to considered pursuing the procedure abovementioned. Prior to surgery, she will be cleared by medicine. Questions were invited and answered, and the patient wishes to proceed as outlined below. Currently, I am recommendin. L5-S1 LAMINOFORAMINOTOMY Description of Procedure: L5-S1 right Microdisc (MIS) The patient was seen and examined in the preoperative area. All preoperative protocols were followed. Informed consent was obtained, risks and benefits of the procedure were discussed at length. Risks including bleeding infection damage to the surrounding tissue and risk of reoperation were discussed with the patient. Risk of anesthesia up to and including was discussed with the patient. These are outlined in the risk review. They were willing to accept these risks and all the risks of surgery. The patient was given a weight-based dose of antibiotics in the form of 2 g Ancef. The patient was seen and evaluated by the anesthesia team who deemed them fit for surgery. The site was marked, the patient was willing to proceed with the procedure. The patient was transferred to the operative suite by the Department of anesthesia. They were then drifted off to sleep by the department anesthesia and GETA was performed. The patient tolerated this well. Stover catheter was placed by nursing staff, a-traumatically. Once confirmation of lines and ventilation the patient was transferred to a prone Titi table very carefully. All bony prominences including wrists, elbows, axilla, chest, hips, and thighs, and feet were padded very well. Special attention was paid to the genitalia, and these were padded accordingly. SCDs were placed on bilateral lower extr emities and were connected. Arms were well padded and placed on arm boards up and out in the 90/90 position. Once in position, again we confirmed good ventilation capabilities and that lines were running appropriately. The patients Lumbar spine was then exposed. 1010s were placed outlining the incision site. Standard alcohol was used to clean the incision site and allowed to dry. C-arm was used to needle localize the pedicles at L5-S1 and bio-martha the patient and confirm level for incision which was marked with a skin marker. Operative briefing was performed with all teams and everyone in agreement to proceed. The patient was then prepped and draped in a normal sterile fashion. Timeout was then performed, and all parties agreed with the procedure to be performed. Skin incision was made over the previously marked area. Fluoroscopy was then used to target the lamina and facet joints on the right hand side of L5-S1 and initial dilator for tubular retractor system was used to identify this area. Once in a good position, sequential dilation was taken up to 26 mm and tube selected. A 60 mm tube was then placed and secured to the table. This was confirmed to be in good position on AP and Lateral imaging. Limited myomectomy was then done to identify the lamina, interlaminar space, and facet joints. Carlos-laminotomy, partial medial facetectomy and foraminotomy were performed at L5-S1 using high speed nancy and Kerrison rongure. The ligamentum flavum was removed with Kerrison and curette. Dura and roots protected. The disc space was identified along with the herniation. 11 blade was used to make small annulotomy and micro-pituitary used to remove loose disc fragments. Once fragments were removed, down biting curette was used to push any medial fragments down and towards the annulotomy and decompress centrally. The disc space was irrigated, and any loose fragments removed again. Bipolar was used for hemostasis and scarring of the annulotomy. The area was irrigated, and meticulous hemostasis performed. The bed was inspected, and all roots have ample room and are decompressed along with the dura. There were no injuries. Retractors were then removed. The wound was copiously irrigated with NSS. The deep fascia was closed with 0 PDS. Deep sub-q with 0 Vicryl and superficial with 2-0 Vicryl. Subcuticular was closed with 3-0 stratafix. The wound edges approximated well. The wound was then cleaned, and glue tape placed on the skin and allowed to dry. It was then Covered with an Opifoam dressing. The patient was then transferred off the table back to their hospital bed a- traumatically. They were extubated by the department of anesthesia. They were then transferred to PACU in stable condition having tolerated the procedure with no complications.
[2023-11-05] MEDS: droPERidol 5 MG/2 ML VIAL IVP ONE (12:31)
[2023-11-05] MEDS ORDERED: HYDROcodone/APAP 7.5-325MG 1 EACH TAB PO PRN (12:53)
[2023-11-05] MEDS: DEXAMETHASONE SOD PHOSPHATE 4 MG/ML 1 ML VIAL IVP ONE (13:13)
[2023-11-05] MEDS: METOCLOPRAMIDE 5 MG/ML 2 ML VIAL IVP ONE (13:24)
[2023-11-05] MEDS: FAMOTIDINE 20 MG/2 ML VIAL IV ONE (13:33)
[2023-11-05 14:41] VITALS: BP 109/75; PULSE 76; RESP 17; TEMP 98.2
--- NOTE | 2023-11-05 15:58 | FL ---
Fluoroscopy INDICATION: Pain FINDINGS: Fluoroscopy time: 43 seconds. Total dose area product (DAP) in uGy*m?, mGy*cm? (or similar): 9.8514 Images obtained: 6. IMPRESSION: 1. Documentation of fluoroscopy.
--- NOTE | 2023-11-05 17:01 | P.PN ---
Progress Note - Text Progress Note Date: 11/05/23 I was contacted by nursing staff regarding patient. Patient has been progressing well. She's been ambulating with minimal difficulty and urinating with no difficulties. Her pain is well-controlled. Possible discharge was discussed with the surgeon after surgery, we will plan to discharge today. She will follow-up in the office the next 1014 days for recheck.
--- NOTE | 2023-11-06 09:39 | P.DS ---
Providers Date of admission: 11/04/23 10:20 Expected date of discharge: 11/05/23 Attending physician: Daljit Montes DO Primary care physician: Pato Taylor Hospital Course: Date of admission: 11/04/2023 Date of discharge: 11/05/2023 Admission diagnosis: Low back pain, right lower extremity radiculopathy, HNP L5- S1 Discharge diagnosis: Status post L5-S1 right sided IN laminoforaminotomy with microdiscecomty Attending physician: Dr. Montes Surgical procedures: L5-S1 right sided IN laminoforaminotomy with microdiscecomty Brief history: Patient is 33-year-old female who had been evaluated and treated in the outpatient setting by Dr. Montes for a H&P involving L5-S1 region. Patient has failed all conservative measures, surgery was scheduled for 11/05/2023. Patient did come in to the hospital on 11/04/2023 due to severe pain and difficulty with ambulation. Hospital course: Details of patient's surgery can be found in operative report. Patient tolerated the procedure well and was subsequently transported to orthopedic floor. Patient's orthopeidc and medical care was provided daily. Patient had daily laboratory tests performed for evaluation of overall blood counts. Patient had daily physical therapy to include strengthening range of motion as well as education with walker ambulation. Patient was treated with compression stockings and YUNG hose for their postoperative DVT prophylaxis during their inpatient stay. Patient was noted to have a relatively uneventful postoperative course. Patient reported satisfactory pain control with oral pain medications by postoperative day 0. Patient showed satisfactory progress with physical therapy. Patient moved steadily through the program and had no difficulty meeting the goals by postoperative day 0. Given patient's otherwise satisfactory course and having met physical therapy goals, plan is to discharge patient home on postoperative day 0. Discharge condition/disposition: Patient will be discharged home in stable condition. Discharge medications: Instructions are given on resumption of patient's normal daily medications per primary care recommendation, in addition patient will be prescribed Rome 7.5 mg/325 mg, senna S, Duricef 500 mg, Zofran 4 mg. Spine Discharge and Recovery Instructions Medications: See medication list All medication refills should be obtained through your primary care doctor or your clinic spine surgeon. Please discuss prescription refills at your follow up appointment. Do not call the hospital for medication refills. Dressing: Leave your dressing in place for a total of 5 days post operatively. Then you may remove your dressing and leave open to air. Keep the area clean and if not able to keep area clean, then cover with sterile gauze and tape. Showering: You may shower 3 days after your procedure allowing soap and water to run over incision. Do not scrub. Do not soak. Blot dry. Follow up: Please confirm a follow up appointment with your surgeon 3 weeks post operatively. Please make an appointment to follow up with your PCP in 1-2 weeks after surgery for evaluation 3 phase, 3-week plan POST OP WEEKS 1-3 1. Lifting/carrying/pushing/pulling limited to less than 5 pounds. 2. Do not sit for longer than 15 minutes at one time. Get up and walk around. Prolonged sitting is NOT advised. If you lay down, see if you can tolerate laying down on you front (belly side) 3. Walk for periods of 15 minutes = 1 mile but no longer; do it multiple times times each day. 4. Ice your low back after activity. POST OP WEEKS 3-6 1. Lifting limited to less than 20 pounds. 2. Do not sit for longer than 30 minutes at a time. Frequently change positions. Use a sit-to stand workstation or take frequent breaks from sitting if you have returned to work. 3. Walk for 30 minutes each day. If possible, do these three or more times a day POST OP WEEKS 6+ At your 6-week appointment we will give you a physical therapy referral to focus on a core stabilization and strengthening program. You should also work on leg & buttock strengthening, hamstring & quadriceps stretching, and continue a low impact aerobic activity program such as swimming, walking, or riding a stationary bicycle. During the initial 6 weeks after your surgery, you are at the highest risk of re-injuring your spine. You should generally avoid BLTs (bending, lifting and twisting combination motions) and follow the above guidelines to reduce the chance of reinjury. You can anticipate post op appointments in our office at approximately 3 weeks and 6 weeks after your surgery. INCISION CARE: If your incision is not draining you do NOT need to cover it with a dressing. Keep your incision clean, dry and intact. In most cases, we apply skin glue, yousuf or sutures to the incision at the time of surgery. This will be like a crust or have the appearance of a scab and will fall off in time on its own. The stitches or yousuf need to be removed at 3 weeks post op appointment. You may begin to shower 3 days after surgery (this allows the glue to paige well). However, please avoid scrubbing the incision site or peeling off any of the skin glue. This will ensure optimal healing of your incision. Also, during this time avoid soaking the incision area in water - this includes swimming pools, hot tubs or baths. No ointments, lotions or oils on the incision until your surgeon allows. Leave yousuf, sutures or glue in place. Neurological dysfunction that comes on suddenly can also be a sign of a stroke. Below some common symptoms of a stroke are listed: B - balance difficulty such as sudden onset walking or leaning to one side - NEW E - eye problem such as sudden double vision or trouble seeing on one side - NEW F - Facial weakness or numbness on one side - NEW A - Arm or leg weakness or numbness on one side - NEW S - Slurred speech or difficulty with word finding - NEW T - Time is BRAIN! Call 911 as soon as you recognize these symptoms Diet: Consume a regular diet rich in vegetables and lean protein such as chicken or fish. You should consume in a ratio of approximately 20% fats|40% carbohydrates|40%protein. Vegetables, sweet potatoes, brown rice or quinoa are examples of good carbohydrates. Chips, white bread, cookies and sweets/sugar are examples of bad carbohydrates. Limit your bad carbs, go wild with good carbs. "Life's Simple 7" Guidelines as per [place] [employer] These will help you reclaim your life after surgery and garnett machine operator helper in your recovery, keeping in mind your restrictions. (1) Get Active. Physical activity can help people lose weight, control high blood pressure and cholesterol, feel emotionally better, and sleep better. (2) Control Cholesterol. Avoid a diet high in saturated fat, trans fat, & cholesterol. Limit whole milk & cream, ice cream, butter, egg yolks, processed meats (like sausage and hot dogs), and fatty meats. Choose healthy foods that are low in saturated fat, trans fat and cholesterol which include: Fruits and vegetables, fiber rich grain products (like whole grain pasta and brown rice), lean meat such as chicken, fish, nuts, seeds, and legumes. (3) Eat Better. Eat small portions. Shop at the grocery with a list and do not stray from it. Tips for a healthy diet include: Limit sodium intake to less than 1500mg daily, avoid prepackaged, processed, and fast foods, choose a diet rich in fruits, vegetables, and whole grain, high fiber foods, and limit saturated & cholesterol in your diet. (4) Manage Blood Pressure. If you have high blood pressure, you should have a cuff at home so that you can check your blood pressure regularly. Be sure you have a good cuff. An arm one is generally better than a wrist one. Bring the cuff to a doctor's appointment to validate that the measurements that your cuff are taking are accurate. Take your blood pressure twice daily when you are sitting down and relaxing. Record the numbers in a log and bring this log with you to your doctors' appointments. (5) Lose Weight if your BMI is above 25. A healthy BMI is between 19-25. To calculate Your BMI, you may use a Standard BMI Calculator on the NIH BMI website: <www.nhlbi.nih.gov/guidelines/obesity/BMI/bmicalc.htm>. Weigh oneself daily. If you are overweight, set a goal to lose weight. A pound a week loss if needed is a good target. (6) Reduce Blood Sugar. Limit foods and liquids with "added sugars." (Added sugars include sucrose, fructose, glucose, maltose, dextrose, high fructose corn syrup, corn syrup, concentrated fruit juice and honey). (7) Stop Smoking. If you smoke, quitting smoking is one of the best things that you can do for your health. Smoking increases your risk of heart attack, stroke, and peripheral vascular disease, which is a build-up of plaque in your arteries. Please discard all the cigarettes and lighters in your house. Have a plan for what you will do when you have the urge to smoke. Direct and second- hand smoke shortens your life as well as the lives of your family, friends and others around you. For your health and the health of those around you, please consider quitting! Proper Bending Body Mechanics: Maintain a wide stance with one foot slightly in front of the other. Keep your back straight. Bend utilizing the strength in your hips and knees. Do not bend at the waist. Maintain the lifted object at your waist-level close to your body. Avoid lifting weight that causes immediately pain or pain anywhere in the body afterwards. Smoking/Nicotine If there was ever one thing that you could do to increase your overall health, decrease your risk of cardiovascular problems by about 39% the second you make the choice, it is to STOP SMOKING. Your body's most instant gratification is the second you stop smoking. We have all heard the studies, read the articles but it is true, smoking is extremely bad for your overall health, and moreover it is detrimental to your bone health. Nicotine, IN ANY FORM, kills bone cells, prevents your body from healing fractures, and significantly prolongs healing after surgery. In spine surgery specifically, it increases your risk of not healing your bones to create a fusion and increases your risk of having a revision surgery due to this up to 60%. I know it is hard. I know it feels impossible. But there are ways. Take control of your life. We are here to help you through it. And when you are ready, ask us and we can direct you to help if you desire. Use the START Plan to Quit Smoking (please visit the Helpguide.org website listed below for more information): S = Set a quit date. Choose a date within the next 2 weeks, so you have enough time to prepare without losing your motivation to quit. If you mainly smoke at work, quit on the weekend, so you have a few days to adjust to the change. T = Tell family, friends, and co-workers that you plan to quit. Let your friends and family in on your plan to quit smoking and tell them you need their support and encouragement to stop. Look for a quit tyler who wants to stop smoking as well. You can help each other get through the rough times. A = Anticipate and plan for the challenges you'll face while quitting. Most people who begin smoking again do so within the first 3 months. You can help yourself make it through by preparing ahead for common challenges, such as nicotine withdrawal and cigarette cravings. R = Remove cigarettes and other tobacco products from your home, car, and work. Throw away all your cigarettes (no emergency pack!), lighters, ashtrays, and matches. Wash your clothes and freshen up anything that smells like smoke. Shampoo your car, clean your drapes and carpet, and steam your furniture. T = Talk to your doctor about getting help to quit. Your doctor can prescribe medication to help with withdrawal and suggest other alternatives. If you can't see a doctor, you can get many products over the counter at your local pharmacy or grocery store, including the nicotine patch, nicotine lozenges, and nicotine gum. Resources for Quitting Smoking: <https://www.[place].gov/documents/md ramires/Quit_Tobacco_Resources_for_patients_313480_7.pdf> Supplementation: Take recommended dosages of Vitamin D and Calcium to help fortify your bones and help them to heal. See your health maintenance packet for dosages and recommended levels. DVT/VTE prophylaxis: You will be given compression stockings from the hospital. Wear these daily for the first two weeks after surgery. You may take them off at night. You may be prescribed a medication to help thin your blood. Take this as directed. If you are not prescribed this medication, early and frequent ambulation has been shown to be the best prophylaxis to deep vein thrombosis and sequelae related to this event. Procedures: L5-S1 right sided IN laminoforaminotomy with microdiscecomty Patient Condition at Discharge: Good Plan - Discharge Summary Discharge Rx Participant: No New Discharge Prescriptions: New cefaDROXiL [Duricef] 500 mg PO Q12HR 5 Days #10 cap HYDROcodone/APAP 7.5-325MG [R[place] 7.5] 1 each PO Q6HR PRN #28 tab PRN Reason: Pain Sennosides/Docusate Sodium [Senna-S 8.6-50 mg Tablet] 2 each PO DAILY PRN #30 tablet PRN Reason: Constipation Ondansetron [Zofran] 4 mg PO Q8HR PRN #30 tab PRN Reason: Nausea No Action Penicillin V Potassium [Pen Vee K] 500 mg PO BID Gabapentin [Neurontin] 300 mg PO BID PRN PRN Reason: Pain Ibuprofen [Motrin] 800 mg PO QID HYDROcodone/APAP 5-325MG [Rome 5-325] 1 tab PO DAILY FLUoxetine HCL [PROzac] 20 mg PO DAILY busPIRone HCL [Buspirone HCl] 10 mg PO DAILY Discharge Medication List FLUoxetine HCL [PROzac] 20 mg PO DAILY 11/04/23 [History] Gabapentin [Neurontin] 300 mg PO BID PRN 11/04/23 [History] HYDROcodone/APAP 5-325MG [R[place] 5-325] 1 tab PO DAILY 11/04/23 [History] Ibuprofen [Motrin] 800 mg PO QID 11/04/23 [History] Penicillin V Potassium [Pen Vee K] 500 mg PO BID 11/04/23 [History] busPIRone HCL [Buspirone HCl] 10 mg PO DAILY 11/04/23 [History] HYDROcodone/APAP 7.5-325MG [R[place] 7.5] 1 each PO Q6HR PRN #28 tab 11/05/23 [Rx] Ondansetron [Zofran] 4 mg PO Q8HR PRN #30 tab 11/05/23 [Rx] Sennosides/Docusate Sodium [Senna-S 8.6-50 mg Tablet] 2 each PO DAILY PRN #30 tablet 11/05/23 [Rx] cefaDROXiL [Duricef] 500 mg PO Q12HR 5 Days #10 cap 11/05/23 [Rx] Follow up Appointment(s)/Referral(s): Pato Taylor MD [Primary Care Provider] - 1-2 days Daljit Montes DO [Doctor of Osteopathic Medicine] - 2 Weeks Activity/Diet/Wound Care/Special Instructions: Spine Discharge and Recovery Instructions All medication refills should be obtained through your primary care doctor or your clinic spine surgeon. Please discuss prescription refills at your follow up appointment. Do not call the hospital for medication refills. Dressing: Okay to remove basic bandage after 48 hours, do not remove skin tape. Okay to shower directly over. Avoid soaking Showering: You may shower 3 days after your procedure allowing soap and water to run over incision. Do not scrub. Do not soak. Blot dry. Follow up: Please confirm a follow up appointment with your surgeon 3 weeks post operatively. Please make an appointment to follow up with your PCP in 1-2 weeks after new rgery for evaluation 3 phase, 3-week plan POST OP WEEKS 1-3 1. Lifting/carrying/pushing/pulling limited to less than 5 pounds. 2. Do not sit for longer than 15 minutes at one time. Get up and walk around. Prolonged sitting is NOT advised. If you lay down, see if you can tolerate laying down on you front (belly side) 3. Walk for periods of 15 minutes = 1 mile but no longer; do it multiple times times each day. 4. Ice your low back after activity. POST OP WEEKS 3-6 1. Lifting limited to less than 20 pounds. 2. Do not sit for longer than 30 minutes at a time. Frequently change positions. Use a sit-to stand workstation or take frequent breaks from sitting if you have returned to work. 3. Walk for 30 minutes each day. If possible, do these three or more times a day POST OP WEEKS 6+ At your 6-week appointment we will give you a physical therapy referral to focus on a core stabilization and strengthening program. You should also work on leg & buttock strengthening, hamstring & quadriceps stretching, and continue a low impact aerobic activity program such as swimming, walking, or riding a stationary bicycle. During the initial 6 weeks after your surgery, you are at the highest risk of re-injuring your spine. You should generally avoid BLTs (bending, lifting and twisting combination motions) and follow the above guidelines to reduce the chance of reinjury. You can anticipate post op appointments in our office at approximately 3 weeks and 6 weeks after your surgery. INCISION CARE: If your incision is not draining you do NOT need to cover it with a dressing. Keep your incision clean, dry and intact. In most cases, we apply skin glue, yousuf or sutures to the incision at the time of surgery. This will be like a crust or have the appearance of a scab and will fall off in time on its own. The stitches or yousuf need to be removed at 3 weeks post op appointment. You may begin to shower 3 days after surgery (this allows the glue to paige well). However, please avoid scrubbing the incision site or peeling off any of the skin glue. This will ensure optimal healing of your incision. Also, during this time avoid soaking the incision area in water - this includes swimming pools, hot tubs or baths. No ointments, lotions or oils on the incision until your surgeon allows. Leave yousuf, sutures or glue in place. Neurological dysfunction that comes on suddenly can also be a sign of a stroke. Below some common symptoms of a stroke are listed: B - balance difficulty such as sudden onset walking or leaning to one side - NEW E - eye problem such as sudden double vision or trouble seeing on one side - NEW F - Facial weakness or numbness on one side - NEW A - Arm or leg weakness or numbness on one side - NEW S - Slurred speech or difficulty with word finding - NEW T - Time is BRAIN! Call 911 as soon as you recognize these symptoms Diet: Consume a regular diet rich in vegetables and lean protein such as chicken or fish. You should consume in a ratio of approximately 20% fats|40% carbohydrates|40%protein. Vegetables, sweet potatoes, brown rice or quinoa are examples of good carbohydrates. Chips, white bread, cookies and sweets/sugar are examples of bad carbohydrates. Limit your bad carbs, go wild with good carbs. "Life's Simple 7" Guidelines as per [place] [employer] These will help you reclaim your life after surgery and garnett machine operator helper in your recovery, keeping in mind your restrictions. (1) Get Active. Physical activity can help people lose weight, control high blood pressure and cholesterol, feel emotionally better, and sleep better. (2) Control Cholesterol. Avoid a diet high in saturated fat, trans fat, & cholesterol. Limit whole milk & cream, ice cream, butter, egg yolks, processed meats (like sausage and hot dogs), and fatty meats. Choose healthy foods that are low in saturated fat, trans fat and cholesterol which include: Fruits and vegetables, fiber rich grain products (like whole grain pasta and brown rice), lean meat such as chicken, fish, nuts, seeds, and legumes. (3) Eat Better. Eat small portions. Shop at the grocery with a list and do not stray from it. Tips for a healthy diet include: Limit sodium intake to less than 1500mg daily, avoid prepackaged, processed, and fast foods, choose a diet rich in fruits, vegetables, and whole grain, high fiber foods, and limit saturated & cholesterol in your diet. (4) Manage Blood Pressure. If you have high blood pressure, you should have a cuff at home so that you can check your blood pressure regularly. Be sure you have a good cuff. An arm one is generally better than a wrist one. Bring the cuff to a doctor's appointment to validate that the measurements that your cuff are taking are accurate. Take your blood pressure twice daily when you are sitting down and relaxing. Record the numbers in a log and bring this log with you to your doctors' appointments. (5) Lose Weight if your BMI is above 25. A healthy BMI is between 19-25. To calculate Your BMI, you may use a Standard BMI Calculator on the NIH BMI website: <www.nhlbi.nih.gov/guidelines/obesity/BMI/bmicalc.htm>. Weigh oneself daily. If you are overweight, set a goal to lose weight. A pound a week loss if needed is a good target. (6) Reduce Blood Sugar. Limit foods and liquids with "added sugars." (Added sugars include sucrose, fructose, glucose, maltose, dextrose, high fructose corn syrup, corn syrup, concentrated fruit juice and honey). (7) Stop Smoking. If you smoke, quitting smoking is one of the best things that you can do for your health. Smoking increases your risk of heart attack, stroke, and peripheral vascular disease, which is a build-up of plaque in your arteries. Please discard all the cigarettes and lighters in your house. Have a plan for what you will do when you have the urge to smoke. Direct and second- hand smoke shortens your life as well as the lives of your family, friends and others around you. For your health and the health of those around you, please consider quitting! Proper Bending Body Mechanics: Maintain a wide stance with one foot slightly in front of the other. Keep your back straight. Bend utilizing the strength in your hips and knees. Do not bend at the waist. Maintain the lifted object at your waist-level close to your body. Avoid lifting weight that causes immediately pain or pain anywhere in the body afterwards. Smoking/Nicotine If there was ever one thing that you could do to increase your overall health, decrease your risk of cardiovascular problems by about 39% the second you make the choice, it is to STOP SMOKING. Your body's most instant gratification is the second you stop smoking. We have all heard the studies, read the articles but it is true, smoking is extremely bad for your overall health, and moreover it is detrimental to your bone health. Nicotine, IN ANY FORM, kills bone cells, prevents your body from healing fractures, and significantly prolongs healing after surgery. In spine surgery specifically, it increases your risk of not healing your bones to create a fusion and increases your risk of having a revision surgery due to this up to 60%. I know it is hard. I know it feels impossible. But there are ways. Take control of your life. We are here to help you through it. And when you are ready, ask us and we can direct you to help if you desire. Use the START Plan to Quit Smoking (please visit the [employer].org website listed below for more information): S = Set a quit date. Choose a date within the next 2 weeks, so you have enough time to prepare without losing your motivation to quit. If you mainly smoke at work, quit on the weekend, so you have a few days to adjust to the change. T = Tell family, friends, and co-workers that you plan to quit. Let your friends and family in on your plan to quit smoking and tell them you need their support and encouragement to stop. Look for a quit tlyer who wants to stop smoking as well. You can help each other get through the rough times. A = Anticipate and plan for the challenges you'll face while quitting. Most people who begin smoking again do so within the first 3 months. You can help yourself make it through by preparing ahead for common challenges, such as nicotine withdrawal and cigarette cravings. R = Remove cigarettes and other tobacco products from your home, car, and work. Throw away all your cigarettes (no emergency pack!), lighters, ashtrays, and matches. Wash your clothes and freshen up anything that smells like smoke. Shampoo your car, clean your drapes and carpet, and steam your furniture. T = Talk to your doctor about getting help to quit. Your doctor can prescribe medication to help with withdrawal and suggest other alternatives. If you can't see a doctor, you can get many products over the counter at your local pharmacy or grocery store, including the nicotine patch, nicotine lozenges, and nicotine gum. Resources for Quitting Smoking: <https://www.[place].gov/documents/[facility]/Quit_Tobacco_Resources_for_patients_313 480_7.pdf> Supplementation: Take recommended dosages of Vitamin D and Calcium to help fortify your bones and help them to heal. See your health maintenance packet for dosages and recommended levels. DVT/VTE prophylaxis: You will be given compression stockings from the hospital. Wear these daily for the first two weeks after surgery. You may take them off at night. You may be prescribed a medication to help thin your blood. Take this as directed. If you are not prescribed this medication, early and frequent ambulation has been shown to be the best prophylaxis to deep vein thrombosis and sequelae related to this event. Discharge Disposition: HOME SELF-CARE
--- NOTE | 2023-11-06 12:04 | XR ---
EXAMINATION TYPE: XR lumbar spine 2 or 3V DATE OF EXAM: 11/05/2023 Comparison: 06/17/2023 Clinical History: 33-year-old female LUMBAR MICRO DISCECTOMY Findings: L5- S1 discectomy with [place]. 43 sec fluoro time. 9.8514 Gycm2 DAP. 6 images saved. Impression: Intraoperative fluoroscopy as above.
--- NOTE | 2023-11-09 23:38 | CONS ---
CONSULTATION Patient of Dr. Montes. CHIEF COMPLAINT: Back pain. HISTORY OF PRESENT ILLNESS: She is admitted for an elective procedure in the L-spine. REVIEW OF SYSTEMS: She has had no fever, chills, headaches, chest pain, shortness of breath, abdominal pain, urinary problems, dysuria, frequency, urgency, renal failure, diabetes, etc. PHYSICAL EXAMINATION: VITAL SIGNS: Blood pressure is 119/82 with a pulse of 69, respirations of 13. She is afebrile. GENERAL: She appeared to be well developed, well nourished, no acute distress. SKIN: Color is normal. Skin is warm and dry. LYMPH NODES: Not enlarged. HEAD, EARS, EYES, NOSE, MOUTH AND THROAT: Normal. CHEST: Clear. CARDIAC: Normal. No murmurs. ABDOMEN: Soft and nontender. EXTREMITIES: Normal. NEUROLOGICAL: She is intact. IMPRESSION: Low back pain with radiculopathy affecting the right leg. RECOMMENDATION: None. Thank you respectfully, MMDALIA / CLARENCEN: [id number] /
--- NOTE | 2023-11-11 01:37 | PN ---
PROGRESS NOTE DATE OF SERVICE: 11/05/2023 CHIEF COMPLAINT: Back pain and radiculopathy. HISTORY OF PRESENT ILLNESS: This lady is doing well. Her pain is under fairly good control. She is afebrile. PHYSICAL EXAMINATION: CHEST: Clear. CARDIAC: Normal. ABDOMEN: Soft and nontender. IMPRESSION: Lumbar spinal stenosis with radiculopathy. PLAN: No recommendations at this time. She is doing well. MMODL / IJN: [id number] /
== END 2023-11-05 18:30 | disposition home or self-care (01) ==
LOC: EC 08:57 → 1SOBS 10:20
PROVIDERS: ADMIT Orthopaedic Surgery; ATTEND Orthopaedic Surgery
DX: M51.17 Intervertebral disc disorders with radiculopathy, lumbosacral region (principal); M48.061 Spinal stenosis, lumbar region without neurogenic claudication; Z87.891 Personal history of nicotine dependence; Z79.899 Other long term (current) drug therapy; F32.A Depression, unspecified; F41.9 Anxiety disorder, unspecified; J45.909 Unspecified asthma, uncomplicated
CPT/HCPCS: 63030; 96361; 96365; 96375; 99285; 36415; 86900; 86901; 80053; 85025; 85610; 85730; 86850; 81003; 81025; 72100; 72131; G0378 ×2; J2250; J0330; J1100; J2710; J2765; J0690; J2405 ×2; J2001; J3010; J3490; J1170 ×2; J2704; J1790; J2371; J0665

== ENCOUNTER → 2024-02-04 | Outpatient (CLI) | payer BC ==
--- NOTE | 2024-02-04 19:20 | US ---
EXAMINATION TYPE: US transvaginal DATE OF EXAM: 02/04/2024 COMPARISON: NONE CLINICAL INDICATION: Female, 33 years old with history of N53.12 DYSPAREUNIA R10.2 FEMALE PELVIC PAIN ; abnormal bleeding. TECHNIQUE: Transvaginal (TV EXAM MEASUREMENTS: Uterus: 8.2 x 5.1 x 6.1 cm Endometrial Stripe: 1.1 cm Right Ovary: 3.6 x 1.4 x 1.4 cm Left Ovary: 3.6 x 2.4 x 2.1 cm 1. Uterus: Anteverted wnl 2. Endometrium: wnl 3. Right Ovary: wnl 4. Left Ovary: Anechoic area seen 2.3 x 1.2 x 1.6 cm. 5. Bilateral Adnexa: wnl 6. Posterior cul-de-sac: wnl IMPRESSION: 1. No evidence for acute process. 2. Endometrium within normal limits for thickness.
== END | disposition home or self-care (01) ==
LOC: RADUSWWP 11:25
PROVIDERS: ATTEND Family Medicine
DX: R10.2 Pelvic and perineal pain (principal)
CPT/HCPCS: 76830

== ENCOUNTER 2024-04-17 11:48 | Emergency (ER) | payer BC ==
[2024-04-17 11:58] VITALS: RESP 18
--- NOTE | 2024-04-17 12:59 | ED ---
Female Urogenital HPI - General Chief complaint: Vaginal Bleeding Stated complaint: Miscarriage Time Seen by Provider: 04/17/24 12:30 Source: patient, RN notes reviewed Mode of arrival: ambulatory Limitations: no limitations - History of Present Illness Initial comments: 34-year-old G2, P1 female presenting at 8 weeks gestation with vaginal bleeding x 1 day. States she is also having right-sided abdominal cramping. States the bleeding is heavy with clots the size of [place]. Denies history of miscarriage or ectopic. Denies lightheadedness, chest pain, syncope. She has not had OB appointment yet. - Related Data Home Medications Medication Instructions Recorded Confirmed FLUoxetine HCL [PROzac] 20 mg PO DAILY 11/04/23 11/04/23 Gabapentin [Neurontin] 300 mg PO BID PRN 11/04/23 11/04/23 HYDROcodone/APAP 5-325MG [[place] 1 tab PO DAILY 11/04/23 11/04/23 5-325] Ibuprofen [Motrin] 800 mg PO QID 11/04/23 11/04/23 Penicillin V Potassium [Pen Vee K] 500 mg PO BID 11/04/23 11/04/23 busPIRone HCL [Buspirone HCl] 10 mg PO DAILY 11/04/23 11/04/23 Previous Rx's Medication Instructions Recorded HYDROcodone/APAP 7.5-325MG [[place] 1 each PO Q6HR PRN #28 tab 11/05/23 7.5] Ondansetron [Zofran] 4 mg PO Q8HR PRN #30 tab 11/05/23 Sennosides/Docusate Sodium 2 each PO DAILY PRN #30 tablet 11/05/23 [Senna-S 8.6-50 mg Tablet] cefaDROXiL [Duricef] 500 mg PO Q12HR 5 Days #10 cap 11/05/23 Allergies Allergy/AdvReac Type Severity Reaction Status Date / Time hydromorphone [From Dilaudid] AdvReac Nausea & Verified 04/17/24 11:58 Vomiting Review of Systems ROS Statement: Those systems with pertinent positive or pertinent negative responses have been documented in the HPI. ROS Other: All systems not noted in ROS Statement are negative. 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 Absent: scleral icterus, conjunctival injection, periorbital swelling ENT exam: Present: normal exam, mucous membranes moist Neck exam: Present: normal inspection. Absent: tenderness, meningismus, lymphadenopathy Respiratory exam: Present: normal lung sounds bilaterally. Absent: respiratory distress, wheezes, rales, rhonchi, stridor Cardiovascular Exam: Present: regular rate, normal rhythm, normal heart sounds. Absent: systolic murmur, diastolic murmur, rubs, gallop, clicks GI/Abdominal exam: Present: soft, normal bowel sounds. Absent: distended, tende rness, guarding, rebound, rigid Speculum exam: Present: other (Female butter fat tester present for pelvic exam. Cervical os unable to be visualized due to large amount of pooling of blood in vaginal canal.) Extremities exam: Present: normal inspection, full ROM, normal capillary refill. Absent: tenderness, pedal edema, joint swelling, calf tenderness Neurological exam: Present: alert, oriented X3, CN II-XII intact Psychiatric exam: Present: normal affect, normal mood Skin exam: Present: warm, dry, intact, normal color. Absent: rash Course Vital Signs 04/17/24 04/17/24 04/17/24 11:56 15:23 17:00 Temperature 98.2 F 98 F 98.1 F Pulse Rate 92 70 75 Respiratory 18 18 18 Rate Blood Pressure 116/82 108/69 110/74 O2 Sat by Pulse 99 99 100 Oximetry Medical Decision Making - Medical Decision Making Was pt. sent in by a medical professional or institution (, PA, MANAGER CONFIGURATION, urgent care, hospital, or care home...) When possible be specific @ -No Did you speak to anyone other than the patient for history (EMS, parent, family, police, friend...)? What history was obtained from this source @ -No Did you review nursing and triage notes (agree or disagree)? Why? @ -I reviewed and agree with nursing and triage notes Were old charts reviewed (outside hosp., previous admission, EMS record, old EKG, old radiological studies, urgent care reports/EKG's, care home records)? Report findings @ -No old charts were reviewed Differential Diagnosis (chest pain, altered mental status, abdominal pain women, abdominal pain men, vaginal bleeding, weakness, fever, dyspnea, syncope, headache, dizziness, GI bleed, back pain, seizure, CVA, palpatations, mental health, musculoskeletal)? @ -Differential Vaginal Bleeding: Spontaneous , threatened , molar , ectopic , bloody show, incompetent cervix, abruptioplacenta, placenta previa, uterine rupture, dysfunctional uterine bleeding, hemorrhage, uterine fibroids, this is not meant to be an all-inclusive list. EKG interpreted by me (3pts min.). @ -None X-rays interpreted by me (1pt min.). @ -None done CT interpreted by me (1pt min.). @ -None done U/S interpreted by me (1pt. min.). @ -Ultrasound revealed no intrauterine identified, left ovary not visu alized due to bowel gas. What testing was considered but not performed or refused? (CT, X-rays, U/S, labs)? Why? @ -None What meds were considered but not given or refused? Why? @ -None Did you discuss the management of the patient with other professionals (professionals i.e. , PA, MANAGER CONFIGURATION, lab, RT, psych nurse, web content & social media manager, cut off sawyer log, teacher, light armored reconnaissance officer, casework manager)? Give summary @ -I spoke with Dr. Talamantes regarding this case and she states, due to stable vitals and hemoglobin, it is reasonable at this time to discharge patient with close outpatient follow-up in 48 hours to trend beta hCG levels with strict return precautions. Was smoking cessation discussed for >3mins.? @ -No Was critical care preformed (if so, how long)? @ -No Were there social determinants of health that impacted care today? How? (Homelessness, low income, unemployed, alcoholism, drug addiction, transportati on, low edu. Level, literacy, decrease access to med. care, fpc, rehab)? @ -No Was there de-escalation of care discussed even if they declined (Discuss DNR or withdrawal of care, Hospice)? DNR status @ -No What co-morbidities impacted this encounter? (DM, HTN, Smoking, COPD, CAD, Cancer, CVA, ARF, Chemo, Hep., AIDS, mental health diagnosis, sleep apnea, morbid obesity)? @ -None Was patient admitted / discharged? Hospital course, mention meds given and route, prescriptions, significant lab abnormalities, going to OR and other pertinent info. @ -Patient was discharged. Patient was seen and evaluated for vaginal bleeding x 1 day with left-sided pelvic cramping. Patient is a G2, P1 female at approximately 8 weeks gestation. Denies passing of products. Vital signs are stable. Female butter fat tester present for pelvic examination in which cervical os is not visualized due to large amount of pooling of blood in the vaginal canal. Patient does have moderate left-sided adnexal tenderness. Hemoglobin is 12.2, beta hCG is 1538. Patient's blood type is O+ and therefore not candidate for RhoGAM at this time. Urine revealed trace of protein and large amount of blood. Ultrasound revealed no intrauterine identified, left ovary not visualized due to bowel gas. I spoke with Dr. Talamantes regarding this case for concern of ectopic at this time. She stated that due to stable vital signs and hemoglobin, it is reasonable at this time to discharge patient with close outpatient follow-up in 48 hours to trend beta hCG levels with strict return precautions. I discussed this with the patient who is agreeable to the plan. Diagnosis of possible spontaneous discussed. Strict return/alarm symptoms discussed with patient in detail and she shows understandi ng and agrees to plan. Case discussed with my attending Dr. Reyes. Patient discharged in stable condition. Undiagnosed new problem with uncertain prognosis? @ -No Drug Therapy requiring intensive monitoring for toxicity (Heparin, Nitro, Insulin, Cardizem)? @ -No Were any procedures done? @ -No Diagnosis/symptom? @ -Spontaneous threatened Acute, or Chronic, or Acute on Chronic? @ -Acute Uncomplicated (without systemic symptoms) or Complicated (systemic symptoms)? @ -Default Side effects of treatment? @ -No Exacerbation, Progression, or Severe Exacerbation? @ -No Poses a threat to life or bodily function? How? (Chest pain, [place], [place], pneumonia, PE, COPD, DKA, ARF, appy, cholecystitis, CVA, Diverticulitis, Homicidal, Suicidal, threat to staff... and all critical care pts) @ -Low likelihood - Lab Data Result diagrams: 04/17/24 13:02 04/17/24 13:02 Lab Results 04/17/24 04/17/24 04/17/24 Range/Units 13:02 13:02 13:02 WBC 12.7 H (3.8-10.6) k/uL RBC 4.21 (3.80-5.40) m/uL Hgb 12.2 (11.4-16.0) gm/dL Hct 39.4 (34.0-46.0) % MCV 93.5 (80.0-100.0) fL MCH 28.8 (25.0-35.0) pg MCHC 30.8 L (31.0-37.0) g/dL RDW 13.1 (11.5-15.5) % Plt Count 227 (150-450) k/uL MPV 9.0 Neutrophils % 69 % Lymphocytes % 21 % Monocytes % 6 % Eosinophils % 3 % Basophils % 1 % Neutrophils # 8.8 H (1.3-7.7) k/uL Lymphocytes # 2.7 (1.0-4.8) k/uL Monocytes # 0.7 (0-1.0) k/uL Eosinophils # 0.4 (0-0.7) k/uL Basophils # 0.1 (0-0.2) k/uL PT 10.3 (10.0-12.5) sec INR 0.9 (<1.2) APTT 29.1 (22.0-30.0) sec Sodium (137-145) mmol/L Potassium (3.5-5.1) mmol/L Chloride (98-107) mmol/L Carbon Dioxide (22-30) mmol/L Anion Gap mmol/L BUN (7-17) mg/dL Creatinine (0.52-1.04) mg/dL Est GFR (CKD-EPI)AfAm (>60 ml/min/1.73 sqM) Est GFR (CKD-EPI)NonAf (>60 ml/min/1.73 sqM) Glucose (74-99) mg/dL Plasma Lactic Acid Alberto (0.7-2.0) mmol/L Calcium (8.4-10.2) mg/dL Total Bilirubin (0.2-1.3) mg/dL AST (14-36) U/L ALT (4-34) U/L Alkaline Phosphatase (38-126) U/L Total Protein (6.3-8.2) g/dL Albumin (3.5-5.0) g/dL HCG, Quant mIU/mL Urine Color Yellow Urine Appearance Cloudy H (Clear) Urine pH 5.5 (5.0-8.0) Ur Specific [place] 1.023 (1.001-1.035) Urine Protein Trace H (Negative) Urine Glucose (UA) Negative (Negative) Urine Ketones Negative (Negative) Urine Blood Large H (Negative) Urine Nitrite Negative (Negative) Urine Bilirubin Negative (Negative) Urine Urobilinogen <2.0 (<2.0) mg/dL Ur Leukocyte Esterase Small H (Negative) Urine RBC 83 H (0-5) /hpf Urine WBC 7 H (0-5) /hpf Ur Squamous Epith Cells 2 (0-4) /hpf Urine Bacteria Rare H (None) /hpf Urine Mucus Moderate H (None) /hpf Blood Type Blood Type Recheck Bld Type Recheck Status 04/17/24 04/17/24 04/17/24 Range/Units 13:02 13:02 13:02 WBC (3.8-10.6) k/uL RBC (3.80-5.40) m/uL Hgb (11.4-16.0) gm/dL Hct (34.0-46.0) % MCV (80.0-100.0) fL MCH (25.0-35.0) pg MCHC (31.0-37.0) g/dL RDW (11.5-15.5) % Plt Count (150-450) k/uL MPV Neutrophils % % Lymphocytes % % Monocytes % % Eosinophils % % Basophils % % Neutrophils # (1.3-7.7) k/uL Lymphocytes # (1.0-4.8) k/uL Monocytes # (0-1.0) k/uL Eosinophils # (0-0.7) k/uL Basophils # (0-0.2) k/uL PT (10.0-12.5) sec INR (<1.2) APTT (22.0-30.0) sec Sodium 139 (137-145) mmol/L Potassium 3.9 (3.5-5.1) mmol/L Chloride 110 H (98-107) mmol/L Carbon Dioxide 25 (22-30) mmol/L Anion Gap 4 mmol/L BUN 7 (7-17) mg/dL Creatinine 0.60 (0.52-1.04) mg/dL Est GFR (CKD-EPI)AfAm >90 (>60 ml/min/1.73 sqM) Est GFR (CKD-EPI)NonAf >90 (>60 ml/min/1.73 sqM) Glucose 93 (74-99) mg/dL Plasma Lactic Acid Alberto 0.7 (0.7-2.0) mmol/L Calcium 9.2 (8.4-10.2) mg/dL Total Bilirubin 0.4 (0.2-1.3) mg/dL AST 15 (14-36) U/L ALT 10 (4-34) U/L Alkaline Phosphatase 60 (38-126) U/L Total Protein 6.6 (6.3-8.2) g/dL Albumin 4.0 (3.5-5.0) g/dL HCG, Quant 1538.5 mIU/mL Urine Color Urine Appearance (Clear) Urine pH (5.0-8.0) Ur Specific [place] (1.001-1.035) Urine Protein (Negative) Urine Glucose (UA) (Negative) Urine Ketones (Negative) Urine Blood (Negative) Urine Nitrite (Negative) Urine Bilirubin (Negative) Urine Urobilinogen (<2.0) mg/dL Ur Leukocyte Esterase (Negative) Urine RBC (0-5) /hpf Urine WBC (0-5) /hpf Ur Squamous Epith Cells (0-4) /hpf Urine Bacteria (None) /hpf Urine Mucus (None) /hpf Blood Type O Positive Blood Type Recheck O Pos Bld Type Recheck Status No Disposition Clinical Impression: Threatened in early Disposition: HOME SELF-CARE Condition: Stable Instructions (If sedation given, give patient instructions): Threatened Miscar riage (ED) Additional Instructions: Please follow-up with Dr. Talamantes on Saturday. Please return to the Emergency Department if symptoms worsen or any other concerns. Is patient prescribed a controlled substance at d/c from ED?: No Referrals: Pato Taylor MD [Primary Care Provider] - 1-2 days Calista Talamantes MD [STAFF PHYSICIAN] - 1-2 days Time of Disposition: 16:54
[2024-04-17 13:28] LABS: Basophils # (A) 0.1 k/uL (0-0.2); Basophils % (A) 1 %; Eosinophils # (A) 0.4 k/uL (0-0.7); Eosinophils % (A) 3 %; HCT 39.4 % (34.0-46.0); HGB 12.2 gm/dL (11.4-16.0); Lymphocytes # (A) 2.7 k/uL (1.0-4.8); Lymphocytes % (A) 21 %; MCH 28.8 pg (25.0-35.0); MCHC 30.8 g/dL (31.0-37.0); MCV 93.5 fL (80.0-100.0); Monocytes # (A) 0.7 k/uL (0-1.0); Monocytes % (A) 6 %; Neutrophils # (A) 8.8 k/uL (1.3-7.7); Neutrophils % (A) 69 %; Platelet Count 227 k/uL (150-450); RBC 4.21 m/uL (3.80-5.40); RDW 13.1 % (11.5-15.5); WBC 12.7 k/uL (3.8-10.6)
[2024-04-17 13:43] LABS: Appearance,Urine Cloudy (Clear); Bacteria,Urine Rare /hpf; Bilirubin,Urine Negative (Negative); Blood,Urine Large (Negative); Color,Urine Yellow; Glucose,Urine (UA) Negative (Negative); INR 0.9 (<1.2); Ketones,Urine Negative (Negative); Leukocyte Esterase,Urine Small (Negative); Mucus,Urine Moderate /hpf; Nitrite,Urine Negative (Negative); PH, Urine 5.5 (5.0-8.0); Protein,Urine Trace (Negative); Prothrombin Time 10.3 sec (10.0-12.5); RBC,Urine 83 /hpf (0-5); Specific Gravity,Urine 1.023 (1.001-1.035); Squamous Epithelial Cell,Urine 2 /hpf (0-4); Urobilinogen,Urine <2.0 mg/dL (<2.0); WBC,Urine 7 /hpf (0-5)
[2024-04-17 13:44] LABS: Partial Thromboplastin Time 29.1 sec (22.0-30.0)
[2024-04-17 13:50] LABS: ALT 10 U/L (4-34); AST 15 U/L (14-36); African American GFR (CKD) >90 (>60 ml/min/1.73 sqM); Alkaline Phosphatase 60 U/L (38-126); Anion Gap 4 mmol/L; Blood Urea Nitrogen 7 mg/dL (7-17); Calcium 9.2 mg/dL (8.4-10.2); Carbon Dioxide 25 mmol/L (22-30); Chloride 110 mmol/L (98-107); Glucose 93 mg/dL (74-99); Non-African American GFR(CKD) >90 (>60 ml/min/1.73 sqM); Potassium 3.9 mmol/L (3.5-5.1); Sodium 139 mmol/L (137-145); Total Bilirubin 0.4 mg/dL (0.2-1.3); Total Protein 6.6 g/dL (6.3-8.2)
[2024-04-17 14:03] LABS: HCG,Quantitative Serum 1538.5 mIU/mL
--- NOTE | 2024-04-17 14:37 | US ---
EXAMINATION TYPE: Transabdominal DATE OF EXAM: 04/17/2024 1:57 PM COMPARISON: NONE CLINICAL INDICATION: Female, 34 years old with history of vaginal bleeding, 8 weeks gestation; Bleedi ng x 2 days EXAM PERFORMED: Transvaginal (TV) and Transabdominal (TA) EXAM MEASUREMENTS: GESTATIONAL AGE / DATING Physician Established: Not yet established Dates by LMP: (8 weeks/3 days) EDC: 02/18/2024 Dates by First Scan: No previous this is first scan Dates by Current Scan for: No IUP seen at this time MATERNAL ANATOMY Uterus: 9.0 x 4.7 x 5.9cm Right Ovary: 3.3 x 1.8 x 3.2cm Left Ovary: not seen due to overlying bowel gas Post CDS / Adnexa: wnl Presence of free fluid: no Presence of corpus luteal cyst: right - 1.9 x 1.5 x 1.8cm Presence of subchorionic bleed: no GESTATION / SURVEY IUP: No IUP seen at this time Date of LMP: 02/18/2024 Beta HcG (if available): Not available at time of exam IMPRESSION: 1. No intrauterine identified. Correlate with beta hCG and follow-up is recommended. Sponta neous and ectopic are within the differential.
[2024-04-17 17:02] VITALS: BP 110/74; PULSE 75; TEMP 98.1
== END 2024-04-17 17:10 | disposition home or self-care (01) ==
LOC: EC 11:48
DX: O20.0 Threatened abortion (principal); Z88.5 Allergy status to narcotic agent; Z87.891 Personal history of nicotine dependence; Z3A.08 8 weeks gestation of pregnancy
CPT/HCPCS: 36415; 76801; 76817; 80053; 81001; 83605; 84702; 85025; 85610; 85730; 86900; 86901; 99284

== ENCOUNTER → 2024-04-20 | Outpatient (CLI) | payer BC | END | disposition home or self-care (01) | LOC: LABWHC1 11:46 | PROVIDERS: ATTEND Obstetrics & Gynecology | DX: O20.0 Threatened abortion (principal); Z3A.00 Weeks of gestation of pregnancy not specified | CPT/HCPCS: 36415; 84702 ==

== ENCOUNTER → 2024-12-23 | Outpatient (CLI) | payer BC ==
--- NOTE | 2024-12-24 06:39 | MR ---
EXAMINATION TYPE: MR lumbar spine wo/w con DATE OF EXAM: 12/23/2024 COMPARISON: Outside MRI lumbar spine 2021. CT lumbar spine November 05, 2023 HISTORY: Low back pain for many years and it travels into right leg and foot. Z48.811, M54.16, ,M62.8 1. TECHNIQUE: Multiplanar, multisequence images of the lumbar spine is performed without and with IV contrast, util izing 9ml mL intravenous Gadobutrol FINDINGS: Sagittal images of the lumbar spine show vertebral body heights and alignment to appear sta ble and satisfactory. Persistent mild disc desiccation L4-L5 level and more prominent disc desiccatio n L5-S1 level. Persistent abnormal appearance to the L5-S1 disc space having a S-shaped configuration with mild narrowing. The conus medullaris remains normal in position and signal ending at mid-L1 le josé miguel. The bone marrow signal intensity is within normal limits. No suspicious postcontrast enhancemen t is seen. Axial images redemonstrate T12-L1 through the L3-L4 levels to show mild facet arthropathy at L3-L4 le josé miguel otherwise appear within normal limits. Axial images at L4-L5 level shows mild broad-based disc bulge minimally effacing the anterior thecal sac and causing mild bilateral neural foraminal narrowing. No significant change from most recent CT. Axial images at L5-S1 level show interval right-sided laminectomy defect with enhancing scar tissue. There is mild left-sided facet arthropathy. There is persistent posterior spur disc complex most prom inent right paracentral region effacing the anterior thecal sac causing persistent moderate spinal ca nal stenosis sagittal image 10 similar to prior MRI. There is moderate right and mild left-sided neur al foraminal narrowing redemonstrated. Paraspinal muscle bulk is maintained. Anteverted uterus is partially imaged similar to prior MRI. IMPRESSION: Interval posterior decompression surgery at L5-S1 level. Stable degenerative changes and moderate spinal canal stenosis at this level is seen. No significant degenerative progression is note d from the most recent CT and MRI. [facility], , 12/24/2024 6:36 AM
== END | disposition home or self-care (01) ==
LOC: RADMRIMAIN 11:11
PROVIDERS: ATTEND Orthopaedic Surgery
DX: Z48.811 Encounter for surgical aftercare following surgery on the nervous system (principal); M47.26 Other spondylosis with radiculopathy, lumbar region; M62.81 Muscle weakness (generalized); M48.061 Spinal stenosis, lumbar region without neurogenic claudication
CPT/HCPCS: 72158; A9585